=== PATIENT | female | born 1955 | race Caucasian/White ===

== ENCOUNTER 2019-09-01 11:35 | Emergency (ER) | payer MEDICAID, SELFPAY ==
[2019-09-01 11:41] VITALS: BP 150/76; PULSE 86; RESP 24; TEMP 36.6; O2SAT 98; BMI 29.2
--- NOTE | 2019-09-01 11:46 | CT_ITS ---
WS: [id number] CT HEAD NONCONTRAST HISTORY: stroke like symptoms TECHNIQUE: Contiguous axial imaging performed through the brain in 2.5 mm imaging. Bone and soft tiss ue windows. Sagittal and coronal reformats reviewed. All CT scans at [facility] use at ast one of these dose optimization techniques: automated exposure control; mA and/or kV adjustment pe r patient size (includes targeted exams where dose is matched to clinical indication); or iterative r econstruction. DLP: 815.94 mGy.cm COMPARISON: 08/12/2018 No acute intracranial hemorrhage, edema or midline shift. Normal rankin-white matter differentiation. No atrophy or prior infarcts or herniation. Minimal chronic microvascular ischemic disease. Ventricles: Normal size with no hydrocephalus. Paranasal sinuses: As visualized are clear. Mastoid air cells: Well pneumatized. Calvarium and scalp: Skull is intact with no soft tissue edema or swelling. CT/CT head wo con* [id number] IMPRESSION: Unremarkable noncontrast head CT. Stable since 08/12/2018 with no acute changes.
--- NOTE | 2019-09-01 12:51 | XRR_ITS ---
PROCEDURE INFORMATION: Exam: XR Chest, 1 View Exam date and time: 09/01/2019 2:33 PM Age: 64 years old Clinical indication: Condition or disease; Lung condition and disease; Copd and emphysema; Additional info: CVA, copd, emphysema, SOB TECHNIQUE: Imaging protocol: XR of the chest Views: 1 view. COMPARISON: CR Chest 1 [place] [id number] 11/26/2018 6:49 PM FINDINGS: Lungs: Unremarkable. No consolidation. Pleural space: Unremarkable. No pleural effusion. No pneumothorax. Heart/Mediastinum: Unremarkable. No cardiomegaly. Bones/joints: Surgical hardware is seen in the cervical spine stable since prior XR/XR chest 1V portable [id number] IMPRESSION: 1. No acute findings. 2. Surgical hardware cervical spine stable since prior
--- NOTE | 2019-09-01 12:52 | ECG_ITS ---
Measurements Intervals [place] Rate: 67 P: 57 FL: 165 QRS: 66 QRSD: 82 T: 63 QT: 396 QTc: 420 SINUS RHYTHM Compared to ECG 11/26/2018 18:55:12 Myocardial infarct finding no longer present Electronically Signed On 09-01-2019 15:35:33 ACQUISITION EDITOR by Shwetha Lo M.D. [id number]
[2019-09-01 14:59] LABS: Basophils # 0.1 10^3/uL (0.0-0.1); Basophils % 0.8 %; Eosinophils # 0.4 10^3/uL (0.0-0.8); Eosinophils % 6.7 %; Hemoglobin 11.3 g/dL (11.5-15.3); Lymphocytes # 2.2 10^3/uL (0.8-4.8); Mean Corpuscular HGB Conc 32.3 g/dL (30.0-36.0); Mean Corpuscular Hemoglobin 28.6 pg (28.0-34.0); Mean Corpuscular Volume 88.6 fL (81-99); Monocytes # 0.5 10^3/uL (0.2-0.9); Monocytes % 8.2 %; Neutrophils # 2.8 10^3/uL (1.8-7.7); Nucleated Red Blood Cells % 0 %; Platelet Count 238 10^3/cmm (130-400); Red Blood Count 3.95 10^6/uL (4.1-5.3); Red Cell Distribution Width 12.8 % (12.1-15.1)
[2019-09-01 15:13] LABS: INR 0.99 (0.8-1.2)
[2019-09-01 15:18] LABS: Alanine Aminotransferase 20 U/L (0-33); Albumin Level 4.4 g/dL (3.5-5.2); Alkaline Phosphatase 80 IU/L (35-105); Anion Gap 16.3 (5-19); Aspartate Amino Transferase 16 U/L (0-32); Blood Urea Nitrogen 7 mg/dL (8-23); Calcium 9.4 mg/dL (8.5-10.5); Carbon Dioxide 27 mmol/L (22-29); Chloride 98 mmol/L (98-107); Creatinine Clr Calc Pharmacy 58.9076; Globulin 2.1 g/dL (1.3-4.6); Glucose 121 mg/dL (74-106); Potassium 4.3 mmol/L (3.5-5.1); Sodium 137 mmol/L (136-145); Total Bilirubin 0.2 mg/dL (0.15-1.2); Total Protein 6.5 g/dL (6.6-8.7)
--- NOTE | 2019-09-01 16:37 | ED_ITS ---
Entered by [id number], acting as scribe for Kristan Nguyễn MD Sep 01, 2019 11:35 HPI - Neuro Symptoms/Deficit General: Chief Complaint: Neuro Symptoms/Deficit Stated Complaint: falling, cant see Time Seen by Provider: 09/01/19 16:40 PFS ED PFSH: Statuses (acute, chronic, etc) shown below reflect problem list status as previously entered and may not be historically accurate Social History Smoking and tobacco status: current every day smoker Course Vital Signs: Vital signs: Vital Signs Temperature 98.1 F 09/01/19 17:06 Pulse Rate 76 09/01/19 17:59 Respiratory Rate 14 09/01/19 17:06 Blood Pressure 161/66 09/01/19 17:59 Pulse Oximetry 97 09/01/19 17:59 MDM - Neuro Symptoms/Deficit Lab Data: Labs: Lab Results 09/01/19 09/01/19 09/01/19 Range/Units 14:50 14:50 14:50 WBC 6.0 (4.0-10.0) 10^3/ uL RBC 3.95 L (4.1-5.3) 10^6/u L Hgb 11.3 L (11.5-15.3) g/dL Hct 35.0 L (37.0-47.0) % MCV 88.6 (81-99) fL MCH 28.6 (28.0-34.0) pg MCHC 32.3 (30.0-36.0) g/dL RDW 12.8 (12.1-15.1) % Plt Count 238 (130-400) 10^3/c mm MPV 11.0 H (7.4-10.4) fL Neut % (Auto) 47.0 % Lymph % (Auto) 37.0 % [place] % (Auto) 8.2 % Eos % (Auto) 6.7 % Baso % (Auto) 0.8 % Neut # (Auto) 2.8 (1.8-7.7) 10^3/u L Lymph # (Auto) 2.2 (0.8-4.8) 10^3/u L [place] # (Auto) 0.5 (0.2-0.9) 10^3/u L Eos # (Auto) 0.4 (0.0-0.8) 10^3/u L Baso # (Auto) 0.1 (0.0-0.1) 10^3/u L Nucleated RBC % (a uto) 0 % Nucleated RBCs # 0.0 /100WBC PT 13.40 H (10.5-13.3) SECO NDS INR 0.99 (0.8-1.2) Sodium 137 (136-145) mmol/L Potassium 4.3 (3.5-5.1) mmol/L Chloride 98 (98-107) mmol/L Carbon Dioxide 27 (22-29) mmol/L Anion Gap 16.3 (5-19) BUN 7 L (8-23) mg/dL Creatinine 0.9 (0.5-0.9) mg/dL GFR Calculation 63.0 L (90-130) mL/min Glucose 121 H (74-106) mg/dL Calcium 9.4 (8.5-10.5) mg/dL Total Bilirubin 0.2 (0.15-1.2) mg/dL AST 16 (0-32) U/L ALT 20 (0-33) U/L Alkaline Phosphata se 80 (35-105) IU/L Total Protein 6.5 L (6.6-8.7) g/dL Albumin 4.4 (3.5-5.2) g/dL Globulin 2.1 (1.3-4.6) g/dL Urine Color (Yellow) Urine Appearance (CLEAR) Urine pH (5-7) Ur Specific Gravit y (1.005-1.030) Urine Protein (Negative) Urine Glucose (UA) (Normal) Urine Ketones (Negative) Urine Occult Blood (Negative) Urine Nitrate (Negative) Urine Bilirubin (NEGATIVE) Urine Urobilinogen (Negative) mg/dL Ur Leukocyte Keeley ase (Negative) 09/01/19 Range/Units 17:56 WBC (4.0-10.0) 10^3/ uL RBC (4.1-5.3) 10^6/u L Hgb (11.5-15.3) g/dL Hct (37.0-47.0) % MCV (81-99) fL MCH (28.0-34.0) pg MCHC (30.0-36.0) g/dL RDW (12.1-15.1) % Plt Count (130-400) 10^3/c mm MPV (7.4-10.4) fL Neut % (Auto) % Lymph % (Auto) % [place] % (Auto) % Eos % (Auto) % Baso % (Auto) % Neut # (Auto) (1.8-7.7) 10^3/u L Lymph # (Auto) (0.8-4.8) 10^3/u L [place] # (Auto) (0.2-0.9) 10^3/u L Eos # (Auto) (0.0-0.8) 10^3/u L Baso # (Auto) (0.0-0.1) 10^3/u L Nucleated RBC % (a uto) % Nucleated RBCs # /100WBC PT (10.5-13.3) SECO NDS INR (0.8-1.2) Sodium (136-145) mmol/L Potassium (3.5-5.1) mmol/L Chloride (98-107) mmol/L Carbon Dioxide (22-29) mmol/L Anion Gap (5-19) BUN (8-23) mg/dL Creatinine (0.5-0.9) mg/dL GFR Calculation (90-130) mL/min Glucose (74-106) mg/dL Calcium (8.5-10.5) mg/dL Total Bilirubin (0.15-1.2) mg/dL AST (0-32) U/L ALT (0-33) U/L Alkaline Phosphata se (35-105) IU/L Total Protein (6.6-8.7) g/dL Albumin (3.5-5.2) g/dL Globulin (1.3-4.6) g/dL Urine Color Straw (Yellow) Urine Appearance Clear (CLEAR) Urine pH 7 (5-7) Ur Specific Gravit y 1.010 (1.005-1.030) Urine Protein Neg (Negative) Urine Glucose (UA) Norm (Normal) Urine Ketones Negative (Negative) Urine Occult Blood Neg (Negative) Urine Nitrate Negative (Negative) Urine Bilirubin Neg (NEGATIVE) Urine Urobilinogen Norm (Negative) mg/dL Ur Leukocyte Keeley ase Negative (Negative) Discharge Plan Discharge Patient Disposition: Home, Self-Care Condition: Stable Prescriptions: No Action baclofen 10 mg tablet 10 mg PO BID RF: 0 lamotrigine [Lamictal] 100 mg tablet 100 mg PO DAILY Qty: 30 RF: 0 zolpidem [Ambien] 10 mg tablet 10 mg PO .QHS Qty: 30 RF: 0 Referrals: Merle Adams MD [Primary Care Provider] - Coding Level of Care Code ED Customer Project Manager for Chg Fwd The documentation recorded by the scribmaryanne, [id number], accurately reflects the service I personally performed and the decisions made by Gopi naik Korby, MD Sep 01, 2019 11:35
--- NOTE | 2019-09-01 16:42 | ED_ITS ---
Entered by Anamaria Rao, acting as scribe for Kristan Nguyễn MD Sep 01, 2019 11:35 HPI - Neuro Symptoms/Deficit General: Chief Complaint: Neuro Symptoms/Deficit Stated Complaint: falling, cant see Time Seen by Provider: 09/01/19 16:40 PFSH ED PFSH: Statuses (acute, chronic, etc) shown below reflect problem list status as previously entered and may not be historically accurate Social History Smoking and tobacco status: current every day smoker Course Vital Signs: Vital signs: Vital Signs Temperature 97.9 F 09/01/19 11:41 Pulse Rate 86 09/01/19 11:41 Respiratory Rate 24 H 09/01/19 11:41 Blood Pressure 150/76 09/01/19 11:41 Pulse Oximetry 98 09/01/19 11:41 MDM - Neuro Symptoms/Deficit Lab Data: Labs: Lab Results 09/01/19 09/01/19 09/01/19 Range/Units 14:50 14:50 14:50 WBC 6.0 (4.0-10.0) 10^3/ uL RBC 3.95 L (4.1-5.3) 10^6/u L Hgb 11.3 L (11.5-15.3) g/dL Hct 35.0 L (37.0-47.0) % MCV 88.6 (81-99) fL MCH 28.6 (28.0-34.0) pg MCHC 32.3 (30.0-36.0) g/dL RDW 12.8 (12.1-15.1) % Plt Count 238 (130-400) 10^3/c mm MPV 11.0 H (7.4-10.4) fL Neut % (Auto) 47.0 % Lymph % (Auto) 37.0 % [place] % (Auto) 8.2 % Eos % (Auto) 6.7 % Baso % (Auto) 0.8 % Neut # (Auto) 2.8 (1.8-7.7) 10^3/u L Lymph # (Auto) 2.2 (0.8-4.8) 10^3/u L [place] # (Auto) 0.5 (0.2-0.9) 10^3/u L Eos # (Auto) 0.4 (0.0-0.8) 10^3/u L Baso # (Auto) 0.1 (0.0-0.1) 10^3/u L Nucleated RBC % (a uto) 0 % Nucleated RBCs # 0.0 /100WBC PT 13.40 H (10.5-13.3) SECO NDS INR 0.99 (0.8-1.2) Sodium 137 (136-145) mmol/L Potassium 4.3 (3.5-5.1) mmol/L Chloride 98 (98-107) mmol/L Carbon Dioxide 27 (22-29) mmol/L Anion Gap 16.3 (5-19) BUN 7 L (8-23) mg/dL Creatinine 0.9 (0.5-0.9) mg/dL GFR Calculation 63.0 L (90-130) mL/min Glucose 121 H (74-106) mg/dL Calcium 9.4 (8.5-10.5) mg/dL Total Bilirubin 0.2 (0.15-1.2) mg/dL AST 16 (0-32) U/L ALT 20 (0-33) U/L Alkaline Phosphata se 80 (35-105) IU/L Total Protein 6.5 L (6.6-8.7) g/dL Albumin 4.4 (3.5-5.2) g/dL Globulin 2.1 (1.3-4.6) g/dL Discharge Plan Discharge Prescriptions: No Action baclofen 10 mg tablet 10 mg PO BID RF: 0 lamotrigine [Lamictal] 100 mg tablet 100 mg PO DAILY Qty: 30 RF: 0 zolpidem [Ambien] 10 mg tablet 10 mg PO .QHS Qty: 30 RF: 0 Coding Level of Care Code ED Fiber Worker for Yamileth Oliveira
--- NOTE | 2019-09-01 16:52 | ED_ITS ---
Entered by Anamaria Rao, acting as scribe for Kristan Nguyễn MD Sep 01, 2019 11:35 HPI - Neuro Symptoms/Deficit General: Chief Complaint: Neuro Symptoms/Deficit Stated Complaint: falling, cant see Time Seen by Provider: 09/01/19 16:40 Source: patient and family Mode of arrival: ambulatory Limitations: no limitations History of Present Illness: HPI Narrative: 64 yo female presents to ED with complaints of falling and inability to see correctly. The patient states she is falling for no reason and seems like one eye will close then the other. She said she has been off balance. She said years ago she had fallen so much she was paralyzed. Family states she has been passing out and doesn't know how she ended up on the floor. The patient takes Tramadol and she had pain patches in place, but has removed them due to them causing her to itch. The patient states that she had a CT in [place] a few weeks ago and she was told to come to the ED today. Onset (ago): day(s) Timing confirmed by: family member Location: other (weak bilateral legs, difficulty with vision) History of same: Yes Severity: mild Quality: weak and other (difficulty with vision) Relieving factors: none Exacerbating factors: none Context: sudden onset and recent fall Associated symptoms: Reports weakness; Deny chest pain, headache(s), nausea or vomiting Treatments Prior to Arrival: none Review of Systems Const: Denies: fever or chills ENMT: Denies: throat pain or mouth pain Card: Denies: chest pain Resp: Denies: shortness of breath GI: Denies: abdominal pain, nausea, vomiting or diarrhea : Denies: difficulty urinating Musc: Denies: back pain or joint pain Skin/Breast: Denies: rash Neuro: Denies: headache or behavioral changes Psych: Denies: depression Endo: Denies: excessive urination Joel/Lymph: Denies: easy bruising All/Imm: Denies: hives PFSH ED PFSH: Statuses (acute, chronic, etc) shown below reflect problem list status as previously entered and may not be historically accurate Social History Smoking and tobacco status: current every day smoker Physical Exam Const: COMMON NORMALS: no apparent distress and healthy appearing HENMT: COMMON NORMALS: normocephalic and external nose normal HEAD & SCALP: normocephalic NOSE: external nose normal and no nasal discharge (nasal dischage) Eye: COMMON NORMALS: PERRL PUPIL: Yes PERRL Neck/C-Spine: COMMON NORMALS: full ROM and no lymphadenopathy Chest: COMMONS NORMALS: inspection of chest normal Resp: COMMON NORMALS: normal respiratory effort and clear to auscultation bilaterally AUSCULTATION: clear to auscultation bilaterally Cardio: COMMON NORMALS: regular rate and regular rhythm RATE: regular rate RHYTHM: regular rhythm GI: COMMON NORMALS: soft to palpation PALPATION: Yes soft Extremity: COMMON NORMALS: normal to inspection, full ROM and normal capillary refill Psych: COMMON NORMALS: mental status grossly normal and cooperative Skin: COMMON NORMALS: no rashes or lesions noted GENERAL SKIN EXAM: no rashes or lesions noted Course Vital Signs: Vital signs: Vital Signs Temperature 98.1 F 09/01/19 17:06 Pulse Rate 80 09/01/19 19:22 Respiratory Rate 14 09/01/19 17:06 Blood Pressure 161/66 09/01/19 17:59 Pulse Oximetry 95 09/01/19 19:22 MDM - Neuro Symptoms/Deficit MDM Narrative: Medical decision making narrative: Patient presents here with dizziness and frequent falls. She states she is been falling for over a year. She is well-appearing here and able to ambulate without any difficulty. Patient CT head and labs are all normal. I offered her admission but she states she would like to go home and follow-up with her primary care doctor. She refuses to be admitted here. Patient is to return if worsening or changes her mind. Lab Data: Labs: Lab Results 09/01/19 09/01/19 09/01/19 Range/Units 14:50 14:50 14:50 WBC 6.0 (4.0-10.0) 10^3/ uL RBC 3.95 L (4.1-5.3) 10^6/u L Hgb 11.3 L (11.5-15.3) g/dL Hct 35.0 L (37.0-47.0) % MCV 88.6 (81-99) fL MCH 28.6 (28.0-34.0) pg MCHC 32.3 (30.0-36.0) g/dL RDW 12.8 (12.1-15.1) % Plt Count 238 (130-400) 10^3/c mm MPV 11.0 H (7.4-10.4) fL Neut % (Auto) 47.0 % Lymph % (Auto) 37.0 % [place] % (Auto) 8.2 % Eos % (Auto) 6.7 % Baso % (Auto) 0.8 % Neut # (Auto) 2.8 (1.8-7.7) 10^3/u L Lymph # (Auto) 2.2 (0.8-4.8) 10^3/u L [place] # (Auto) 0.5 (0.2-0.9) 10^3/u L Eos # (Auto) 0.4 (0.0-0.8) 10^3/u L Baso # (Auto) 0.1 (0.0-0.1) 10^3/u L Nucleated RBC % (a uto) 0 % Nucleated RBCs # 0.0 /100WBC PT 13.40 H (10.5-13.3) SECO NDS INR 0.99 (0.8-1.2) Sodium 137 (136-145) mmol/L Potassium 4.3 (3.5-5.1) mmol/L Chloride 98 (98-107) mmol/L Carbon Dioxide 27 (22-29) mmol/L Anion Gap 16.3 (5-19) BUN 7 L (8-23) mg/dL Creatinine 0.9 (0.5-0.9) mg/dL GFR Calculation 63.0 L (90-130) mL/min Glucose 121 H (74-106) mg/dL Calcium 9.4 (8.5-10.5) mg/dL Total Bilirubin 0.2 (0.15-1.2) mg/dL AST 16 (0-32) U/L ALT 20 (0-33) U/L Alkaline Phosphata se 80 (35-105) IU/L Total Protein 6.5 L (6.6-8.7) g/dL Albumin 4.4 (3.5-5.2) g/dL Globulin 2.1 (1.3-4.6) g/dL Urine Color (Yellow) Urine Appearance (CLEAR) Urine pH (5-7) Ur Specific Gravit y (1.005-1.030) Urine Protein (Negative) Urine Glucose (UA) (Normal) Urine Ketones (Negative) Urine Occult Blood (Negative) Urine Nitrate (Negative) Urine Bilirubin (NEGATIVE) Urine Urobilinogen (Negative) mg/dL Ur Leukocyte Keeley ase (Negative) 09/01/19 Range/Units 17:56 WBC (4.0-10.0) 10^3/ uL RBC (4.1-5.3) 10^6/u L Hgb (11.5-15.3) g/dL Hct (37.0-47.0) % MCV (81-99) fL MCH (28.0-34.0) pg MCHC (30.0-36.0) g/dL RDW (12.1-15.1) % Plt Count (130-400) 10^3/c mm MPV (7.4-10.4) fL Neut % (Auto) % Lymph % (Auto) % [place] % (Auto) % Eos % (Auto) % Baso % (Auto) % Neut # (Auto) (1.8-7.7) 10^3/u L Lymph # (Auto) (0.8-4.8) 10^3/u L [place] # (Auto) (0.2-0.9) 10^3/u L Eos # (Auto) (0.0-0.8) 10^3/u L Baso # (Auto) (0.0-0.1) 10^3/u L Nucleated RBC % (a uto) % Nucleated RBCs # /100WBC PT (10.5-13.3) SECO NDS INR (0.8-1.2) Sodium (136-145) mmol/L Potassium (3.5-5.1) mmol/L Chloride (98-107) mmol/L Carbon Dioxide (22-29) mmol/L Anion Gap (5-19) BUN (8-23) mg/dL Creatinine (0.5-0.9) mg/dL GFR Calculation (90-130) mL/min Glucose (74-106) mg/dL Calcium (8.5-10.5) mg/dL Total Bilirubin (0.15-1.2) mg/dL AST (0-32) U/L ALT (0-33) U/L Alkaline Phosphata se (35-105) IU/L Total Protein (6.6-8.7) g/dL Albumin (3.5-5.2) g/dL Globulin (1.3-4.6) g/dL Urine Color Straw (Yellow) Urine Appearance Clear (CLEAR) Urine pH 7 (5-7) Ur Specific Gravit y 1.010 (1.005-1.030) Urine Protein Neg (Negative) Urine Glucose (UA) Norm (Normal) Urine Ketones Negative (Negative) Urine Occult Blood Neg (Negative) Urine Nitrate Negative (Negative) Urine Bilirubin Neg (NEGATIVE) Urine Urobilinogen Norm (Negative) mg/dL Ur Leukocyte Keeley ase Negative (Negative) Imaging Data^: CXR: Radiologist's impression: [address] [address] XRay Report Signed Patient: Ernestine Nunez Unit #: [id number] : 1955 Age/Sex: 64 / F ADM Date: 09/01/19 Loc: ER Room/Bed: Attending Dr: Ordering Provider/Ordering MD: Kristan Nguyễn MD Date of Service: 09/01/19 Procedure(s): XR chest 1V portable [id number] Accession Number(s): [id number] Report Number: [id number] PROCEDURE INFORMATION: Exam: XR Chest, 1 View Exam date and time: 09/01/2019 2:33 PM Age: 64 years old Clinical indication: Condition or disease; Lung condition and disease; Copd and emphysema; Additional info: CVA, copd, emphysema, SOB TECHNIQUE: Imaging protocol: XR of the chest Views: 1 view. COMPARISON: CR Chest 1 [place] [id number] 11/26/2018 6:49 PM FINDINGS: Lungs: Unremarkable. No consolidation. Pleural space: Unremarkable. No pleural effusion. No pneumothorax. Heart/Mediastinum: Unremarkable. No cardiomegaly. Bones/joints: Surgical hardware is seen in the cervical spine stable since prior XR/XR chest 1V portable [id number] IMPRESSION: 1. No acute findings. 2. Surgical hardware cervical spine stable since prior Dictated By: Hector Quinonez Signed By: Hector Quinonez Signed Date/Time: 09/01/19 1507 DD/ CT Head: Radiologist's impression: [facility] [address] [place] [address] CT Scan Report Signed Patient: Ernestine Nunez Unit #: [id number] : 1955 Age/Sex: 64 / F ADM Date: 09/01/19 Loc: ER Room/Bed: Attending Dr: Ordering Provider/Ordering MD: Raul Storey DO Date of Service: 09/01/19 Procedure(s): CT head wo con* [id number] Accession Number(s): [id number] Report Number: [id number] WS: [id number] CT HEAD NONCONTRAST HISTORY: stroke like symptoms TECHNIQUE: Contiguous axial imaging performed through the brain in 2.5 mm imaging. Bone and soft tissue windows. Sagittal and coronal reformats reviewed. All CT scans at [facility] use at least one of these dose optimization techniques: automated exposure control; mA and/or kV adjustment per patient size (includes targeted exams where dose is matched to clinical indication); or iterative reconstruction. DLP: 815.94 mGy.cm COMPARISON: 08/12/2018 No acute intracranial hemorrhage, edema or midline shift. Normal rankin-white matter differentiation. No atrophy or prior infarcts or herniation. Minimal chronic microvascular ischemic disease. Ventricles: Normal size with no hydrocephalus. Paranasal sinuses: As visualized are clear. Mastoid air cells: Well pneumatized. Calvarium and scalp: Skull is intact with no soft tissue edema or swelling. CT/CT head wo con* [id number] IMPRESSION: Unremarkable noncontrast head CT. Stable since 08/12/2018 with no acute changes. Dictated By: Milagros Ma DO Signed By: Milagros Ma DO Signed Date/Time: 09/01/19 1501 DD/ Discharge Plan Discharge Patient Disposition: Home, Self-Care Clinical Impression: Falls, Dizziness Condition: Stable Prescriptions: No Action baclofen 10 mg tablet 10 mg PO BID RF: 0 lamotrigine [Lamictal] 100 mg tablet 100 mg PO DAILY Qty: 30 RF: 0 zolpidem [Ambien] 10 mg tablet 10 mg PO .QHS Qty: 30 RF: 0 Discharge Orders: Discharge Order (Routine); Ordered 09/01/19 Ordered By: Kristan Nguyễn Referrals: Merle Adams MD [Primary Care Provider] - Discharge Diet: Advance as tolerated Discharge Activity: Resume usual activity Patient Instructions: Dizziness (ED) Discharge Date/Time: 09/01/19 19:22 Coding Level of Care Code ED Quartz Cutter for Chg Fwd The documentation recorded by the Maira umaña Valerie R, accurately reflects the service I personally performed and the decisions made by Gopi naik Korby, MD Sep 01, 2019 11:35
[2019-09-01 17:06] VITALS: BP 93/72; PULSE 73; RESP 14; TEMP 36.7; O2SAT 97
[2019-09-01 17:59] VITALS: BP 161/66; PULSE 76; O2SAT 97
[2019-09-01 18:27] LABS: Add Urine Microscopic? NO
[2019-09-01 18:36] LABS: Bilirubin Urine Neg (NEGATIVE); Blood Urine Neg (Negative); Glucose Urine UA Norm (Normal); Ketones Urine Negative (Negative); Leukocyte Esterase Urine Negative (Negative); Nitrate Urine Negative (Negative); Protein Urine Neg (Negative); Urine Appearance Clear (CLEAR); Urine Color Straw (Yellow); Urobilinogen Urine Norm (Negative); pH Urine 7 (5-7)
[2019-09-01 19:22] VITALS: PULSE 80; O2SAT 95
== END 2019-09-01 19:22 | disposition home or self-care (01) ==
PROVIDERS: Family Medicine; Emergency Provider Emergency Medicine; Family Provider Family Medicine; PCP Family Medicine
DX: R29.6 Repeated falls (principal); R42 Dizziness and giddiness; F17.210 Nicotine dependence, cigarettes, uncomplicated
CPT/HCPCS: 70450; 71045; 80053; 81003; 85025; 85610; 93005; 99282; A9270

== ENCOUNTER 2019-09-12 09:34 | Outpatient (CLI) | payer MEDICAID, SELFPAY ==
--- NOTE | 2019-09-12 10:53 | MR_ITS ---
WS: [id number] MRI BRAIN WITH AND WITHOUT CONTRAST HISTORY: VISION CHANGES, FREQUENT FALLS, HYPERTENSION COMPARISON: CT head 09/01/2019 TECHNIQUE: Multiplanar imaging performed through the brain with Prohance 16 ml's IV. No acute infarcts are seen. Jones-white matter differentiation is well preserved. Minimal chronic micr ovascular ischemic disease. Mild microvascular disease in the zhanna. No prior hemorrhage. No susceptibility artifacts or prior lacunar infarcts. Ventricles and extra-axial spaces are normal. Clivus and pituitary gland are normal. Optic nerves are tortuous although there is no increased CSF s urrounding them. Visualized posterior fossa and brainstem are also normal. Postcontrast images are negative for masses or vascular malformations. Dural venous sinuses are normal. Paranasal sinuses: Small amount of thickening in the RIGHT maxillary sinus. Mastoid air cells: Normal. Calvarium and scalp: Normal. MR/MR head wo/w con [id number] IMPRESSION: 1. Minimal chronic microvascular ischemic disease in the zhanna and supratentori al white matter. 2. No mass or abnormal enhancement or acute infarct. 3. Mild tortuosity of the optic nerves can be seen with intracranial hypertens ion.
== END 2019-09-12 09:35 | disposition home or self-care (01) ==
LOC: RADWPI 09:37
PROVIDERS: Family Provider Family Medicine; PCP Family Medicine; Visit Provider Nurse Practitioner Family
DX: I67.82 Cerebral ischemia (principal); I10 Essential (primary) hypertension; R29.6 Repeated falls; H53.9 Unspecified visual disturbance
CPT/HCPCS: 70553; A9579

== ENCOUNTER 2019-09-27 09:19 | Outpatient (CLI) | payer MEDICAID, SELFPAY ==
[2019-10-02 18:10] LABS: Hepatitis C Genotype RNA NOT DETECTED
== END 2019-09-27 09:20 | disposition home or self-care (01) ==
LOC: LAB 09:22
PROVIDERS: Family Provider Family Medicine; PCP Family Medicine; Visit Provider Nurse Practitioner Family
DX: R76.8 Other specified abnormal immunological findings in serum (principal)
CPT/HCPCS: 87522; 87902

== ENCOUNTER → 2019-09-29 12:38 | Outpatient (BNVA) | payer MEDICAID, SELFPAY | PROVIDERS: Family Provider Family Medicine; PCP Family Medicine; Visit Provider Nurse Practitioner | DX: F31.73 Bipolar disorder, in partial remission, most recent episode manic (principal) | CPT/HCPCS: 99213 ==

== ENCOUNTER → 2019-10-06 11:03 | Outpatient (BNVA) | payer MEDICAID, SELFPAY | PROVIDERS: Family Provider Family Medicine; PCP Family Medicine; Visit Provider Otolaryngology | DX: H92.03 Otalgia, bilateral (principal); H60.63 Unspecified chronic otitis externa, bilateral; R26.89 Other abnormalities of gait and mobility; F17.210 Nicotine dependence, cigarettes, uncomplicated | CPT/HCPCS: 99204; 99214 ==

== ENCOUNTER 2019-10-09 12:44 | Outpatient (CLI) | payer MEDICAID, SELFPAY ==
--- NOTE | 2019-10-09 12:50 | MR_ITS ---
WS: [id number] MRI CERVICAL SPINE HISTORY: cervical pain COMPARISON: Cervical spine CT 06/21/2019. Study of the cervical spine is limited by the hardware which extends from C3 through C6. Corpectomy a t C5-6. There is also motion artifact. There is increased signal and smudginess in the cervical cord at the C6 level and possibly at the C5 level. Changes at C5 may be artifact. Craniocervical junction, C1 and C2 relationship, odontoid process and soft tissues are normal. C2-C3: Shallow central disc protrusion without stenosis. C3-C4: Mild osteophytic ridging with mild central and foraminal narrowing. Larger osteophytes in the LEFT foramen. C4-C5: Mild osteophytic ridging. Artifact is causing significant limitation of the central canal and foramen. There is at least mild central and bilateral foraminal stenosis. C5-C6: Limited by significant artifact. Cannot exclude stenosis or herniations. There is an area of l ow signal intensity posterior to the C6 vertebral body which on the recent prior CT is noted to be os teophyte. This calcification causes effacement of CSF and probably at least moderate central stenosis . This is also the location of the increased signal in the cervical cord. C6-C7: Osteophytic ridging and diffuse disc bulging. There is at least moderate if not severe central and bilateral foraminal stenosis. Severe LEFT foraminal stenosis. More moderate on the RIGHT. C7-T1: Normal. Paraspinal soft tissue are normal. MR/MR cervical spine wo/w [id number] IMPRESSION: 1. Status post extensive anterior fusion from C3 through C6. Corpectomy change s at C5 and C6. 2. Examination is significantly limited by artifact and motion. 3. Suspect significant stenosis at the C6-7 level due to combination of an ost eophyte, disc and facet arthropathy. There is a large osteophyte posterior to C 6 with significant encroachment upon the cervical cord and myelomalacia. Also n oted on the prior CT of 03/01/2019. 4. Severe LEFT foraminal stenosis at C6-7 and slightly more moderate involving the RIGHT foramen. 5. Mild central and bilateral foraminal stenosis at C3-4 and C4-5.
--- NOTE | 2019-10-09 12:50 | MR_ITS ---
WS: [id number] MRI LUMBAR SPINE NONCONTRAST HISTORY: lumbar pain COMPARISON: CT 04/13/2018 TECHNIQUE: Sagittal and axial multisequence imaging is submitted. Remote L1 fracture by 20%. 2 mm retropulsion of the posterior superior endplate is unchanged over mul tiple prior years. No significant compression of the conus although there is slight deformity. Disc spaces and vertebral body heights are well-preserved. Conus terminates normally at L1-2 disc level. The thecal sac throughout the lumbar spine is narrowed. L1-L2: No stenosis. L2-L3: Mild annular disc bulging and mild ligamentum flavum hypertrophy. No stenosis. L3-L4: Mild ligamentum flavum hypertrophy and facet arthropathy. No stenosis. L4-L5: Mild annular disc bulging with moderate ligamentum flavum and facet arthropathy. Narrowing of the thecal sac with fluid in the facet joints and osteophytes. Mild central and bilateral foraminal s tenosis. L5-S1: Mild osteophytic ridging and diffuse disc bulging. Moderate ligamentum flavum hypertrophy and facet arthropathy. Mild bilateral foraminal stenosis, slightly greater on the RIGHT. Visualized retroperitoneum is negative. MR/MR lumbar spine wo con* [id number] IMPRESSION: 1. Stable burst fracture of L1 over multiple prior years with less than 2 mm r etropulsion of the posterior superior endplate. 2. Mild diffuse narrowing of the thecal sac. Probably due to shortened pedicle s. 3. Mild spondylosis at L4-5 and L5-S1 resulting in mild bilateral foraminal st enosis. Mild central stenosis also at the L4-5 level.
--- NOTE | 2019-10-09 12:50 | MR_ITS ---
WS: [id number] MRI THORACIC SPINE noncontrast HISTORY: cervical pain COMPARISON: 04/16/2017 TECHNIQUE: Multiplanar sequences are performed in sagittal and axial planes. Posterior thoracic alignment is normal. Postsurgical changes are noted in the cervical spine. There i s mild disc desiccation throughout the thoracic spine. Mild anterior wedging superior endplate of T5 with no edema. Remote L1 compression fracture by 20%. Signal within the cord is normal. T1-2: Normal. T2-3: Normal. T3-4: Normal. T4-5: Small vertebral body osteophytes without stenosis. T5-6: Normal. T6-7: Normal. T7-8: Normal. T8-9: Mild facet arthropathy no stenosis. T9-10: Mild facet arthropathy no stenosis. T10-11: Mild facet arthropathy with mild bilateral foraminal narrowing, LEFT greater than RIGHT. T11-12: Moderate facet joint arthropathy with mild bilateral foraminal narrowing. Paraspinal soft tissues are normal. MR/MR thoracic spin wo con* [id number] IMPRESSION: 1. Mild to moderate facet arthropathy from T8-9 through T11-12. No severe sten osis. Mild bilateral foraminal stenosis at T10-11 and T11-12. 2. No central stenosis. 3. Remote minimal compression deformity T5.
--- NOTE | 2019-10-09 15:15 | XR_ITS ---
WS: [id number] LATERAL LUMBAR SPINE: 3 view. Lateral radiographs are performed in upright neutral, flexion and extension to the patient's toleranc e. HISTORY: lumbar pain COMPARISON: 10/21/2017 Normal lumbar alignment. Stable L1 compression fracture by 30%. With flexion and extension there is n o instability. XR/XR lumbar spine f/e only [id number] IMPRESSION: 1. No lumbar spine instability. 2. Stable L1 compression fracture without retropulsion.
--- NOTE | 2019-10-09 15:45 | XR_ITS ---
WS: [id number] LATERAL CERVICAL SPINE: 3 view. Lateral radiographs are performed in upright neutral, flexion and extension to the patient's toleranc e. HISTORY: cervical pain COMPARISON: 01/20/2019 Extensive anterior cervical fusion from C3 through C6. Corpectomy at C5 and partial C6 vertebral bodi es. No hardware fracture. No change in position of the hardware. No lucency around the screws. Severe degenerative disc space narrowing at C6-7. With flexion and extension there is very little movement of the vertebral bodies but no instability i s identified. XR/XR cervical spine fl/ex [id number] IMPRESSION: 1. No cervical spine instability. 2. Extensive anterior cervical fusion from C3 through C6 with C5-6 corpectomy cage, stable.
== END 2019-10-09 12:45 | disposition home or self-care (01) ==
LOC: RADWPI 12:48
PROVIDERS: Family Provider Family Medicine; PCP Family Medicine; Visit Provider Specialist
DX: M50.020 Cervical disc disorder with myelopathy, mid-cervical region, unspecified level (principal); M48.56XA Collapsed vertebra, not elsewhere classified, lumbar region, initial encounter for fracture; M48.04 Spinal stenosis, thoracic region; M96.0 Pseudarthrosis after fusion or arthrodesis; M54.2 Cervicalgia; M54.5 Low back pain; M47.896 Other spondylosis, lumbar region; M47.897 Other spondylosis, lumbosacral region; Z98.1 Arthrodesis status; M48.02 Spinal stenosis, cervical region
CPT/HCPCS: 72040; 72120; 72146; 72148; 72156; A9579

== ENCOUNTER 2019-11-04 18:49 | Emergency (ER) | payer MEDICAID, SELFPAY ==
[2019-11-04 19:08] VITALS: BP 131/111; PULSE 84; RESP 18; TEMP 36.7; O2SAT 98; BMI 31.1
--- NOTE | 2019-11-04 19:37 | XRR_ITS ---
PROCEDURE INFORMATION: Exam: XR Chest, 1 View Exam date and time: 11/04/2019 8:08 PM Age: 64 years old Clinical indication: Cough and dyspnea; Prior surgery; Surgery date: 6+ months; Surgery type: C spine, gb; Additional info: SOB TECHNIQUE: Imaging protocol: XR of the chest Views: 1 view. COMPARISON: CR XR chest 1V portable [id number] 09/01/2019 2:28 PM FINDINGS: No focal pulmonary consolidation is demonstrated on this single frontal image. No significant obscuration of the lateral costophrenic angles is demonstrated. No significant vascular congestion is demonstrated. Visualized cardiac silhouette size appears within normal limits. Metallic hardware projects over visualized cervical spine. Metallic anchors project over left humeral head. XR/XR chest 1V portable [id number] IMPRESSION: No acute pulmonary process is demonstrated.
[2019-11-04 19:58] LABS: Basophils # 0.1 10^3/uL (0.0-0.1); Basophils % 0.6 %; Eosinophils # 0.4 10^3/uL (0.0-0.8); Hematocrit 37.5 % (37.0-47.0); Hemoglobin 11.7 g/dL (11.5-15.3); Lymphocytes # 2.3 10^3/uL (0.8-4.8); Lymphocytes % 27.1 %; Mean Corpuscular HGB Conc 31.2 g/dL (30.0-36.0); Mean Corpuscular Hemoglobin 29.1 pg (28.0-34.0); Mean Corpuscular Volume 93.3 fL (81-99); Mean Platelet Volume 10.5 fL (7.4-10.4); Monocytes # 0.7 10^3/uL (0.2-0.9); Monocytes % 7.6 %; Neutrophils # 5.1 10^3/uL (1.8-7.7); Neutrophils % 59.3 %; Nucleated Red Blood Cells % 0 %; Platelet Count 237 10^3/cmm (130-400); Red Blood Count 4.02 10^6/uL (4.1-5.3); White Blood Count 8.6 10^3/uL (4.0-10.0)
[2019-11-04] MEDS: ipratropium-albuterol 3 mL Neb INHALATION (20:13)
[2019-11-04 20:14] VITALS: PULSE 70; RESP 18; O2SAT 98
[2019-11-04 20:18] VITALS: PULSE 71; RESP 16; O2SAT 98
[2019-11-04 20:24] LABS: Alanine Aminotransferase 14 U/L (0-33); Albumin Level 4.1 g/dL (3.5-5.2); Alkaline Phosphatase 79 IU/L (35-105); Aspartate Amino Transferase 15 U/L (0-32); Blood Urea Nitrogen 10 mg/dL (8-23); Calcium 9.2 mg/dL (8.5-10.5); Carbon Dioxide 24 mmol/L (22-29); Chloride 102 mmol/L (98-107); Globulin 2.8 g/dL (1.3-4.6); Glomerular Filtration Rate 84.2 mL/min (90-130); Glucose 98 mg/dL (65-115); Osmolality Calculated 280 mOsm/kg (285-295); Sodium 137 mmol/L (136-145); Total Bilirubin 0.2 mg/dL (0.15-1.2); Total Protein 6.9 g/dL (6.6-8.7)
[2019-11-04 20:33] LABS: Influenza A by IFA Negative (Negative); Influenza B by IFA Negative (Negative)
--- NOTE | 2019-11-04 21:01 | W.ED.SOB ---
HPI - SOB/Dyspnea General: Chief Complaint: Shortness of Breath/Dyspnea Stated Complaint: SOB/coughing Time Seen by Provider: 11/04/19 19:18 History of Present Illness: MD elicited complaint: shortness of breath and cough Pertinent past history: COPD Onset (ago): day(s) Context: recent illness Timing: constant Severity: moderate Exacerbating factors: exertion Relieving factors: nothing Known history of: COPD Associated symptoms: Reports chest congestion and cough; Deny abdominal pain, chest pain, dizziness, fever(s), nausea or vomiting Treatment prior to arrival: bronchodilator Review of Systems Const: Denies: fever Eyes: Denies: change in vision or blurry vision ENMT: Denies: painful swallowing, post nasal drip or facial/sinus pain Card: Denies: chest pain Resp: Reports: chest congestion GI: Denies: abdominal pain, nausea, vomiting or blood in stool : Denies: painful urination or blood in urine Musc: Reports: neck pain; Denies: back pain, redness or joint warmth Skin/Breast: Denies: rash, itching or redness Neuro: Denies: headache, dizziness or vertigo Psych: Denies: anxiety PFSH ED PFSH: Medical History (Updated 11/04/19 @ 21:11 by Cr Carreno DO) Bipolar disorder, in partial remission, most recent episode manic Cervical disc disorder with myelopathy of mid-cervical region Chronic otitis externa of both ears COPD (chronic obstructive pulmonary disease) Imbalance Otalgia of both ears Pseudarthrosis following spinal fusion Surgical History H/O: hysterectomy History of ankle surgery History of mandibular surgery Hx of carpal tunnel repair left Hx of section Hx of cholecystectomy S/P left rotator cuff repair Status post cervical spinal fusion C5 corpectomy, C3-C6 anterior [place]fixation[place] [place] Smoking and tobacco status: current every day smoker cigarettes Packs smoked per day: 1 Smoking risk assessment/counseling performed?: Yes Tobacco counseling given: counseling >3 minutes Alcohol intake: never Lives independently: Yes Marital status: Single Current occupational status: disabled Physical Exam Const: GENERAL APPEARANCE: well developed ORIENTATION/CONSCIOUSNESS: Yes oriented to person, Yes oriented to place and Yes oriented to time HENMT: COMMON NORMALS: normocephalic, external ears normal and external nose normal HEAD & SCALP: normocephalic FACE & SINUS: normal facial exam NOSE: external nose normal and no nasal discharge EXTERNAL EAR: Yes external ears normal MOUTH: tongue normal Eye: COMMON NORMALS: PERRL, EOMs intact bilaterally and conjunctivae normal EYELID: eyelids normal CONJUNCTIVA: Yes conjunctivae normal PUPIL: Yes PERRL Neck/C-Spine: COMMON NORMALS: full ROM GENERAL: No tracheal deviation Chest: COMMONS NORMALS: inspection of chest normal CHEST: No tenderness Resp: EFFORT & INSPECTION: No tachypneic, No respiratory distress, No retractions, No uses accessory muscles and No tracheal deviation AUSCULTATION: no rhonchi, no wheezes and lung sounds not diminished Cardio: COMMON NORMALS: regular rate and regular rhythm RATE: regular rate RHYTHM: regular rhythm HEART SOUNDS: no murmurs PERIPHERAL PULSES: radial pulses present GI: INSPECTION: No abdominal distension AUSCULTATION: No hyperactive bowel sounds and No hypoactive bowel sounds PALPATION: No guarding and No rigid PERCUSSION: no dullness to percussion and no tympanic to percussion Neuro: SENSORIUM/ORIENTATION: Yes oriented to person, Yes oriented to place and Yes oriented to time Psych: COMMON NORMALS: mental status grossly normal Skin: COMMON NORMALS: no rashes or lesions noted GENERAL SKIN EXAM: no rashes or lesions noted Course Vital Signs: Vital signs: Vital Signs Temperature 98.0 F 11/04/19 19:08 Pulse Rate 84 11/04/19 21:28 Respiratory Rate 18 11/04/19 21:28 Blood Pressure 121/78 11/04/19 21:28 Pulse Oximetry 95 11/04/19 21:28 MDM - SOB/Dyspnea MDM Narrative: Medical decision making narrative: 64-year-old lady with a history of COPD. She presents with cough and shortness of breath, not feeling well. She has been wheezing at home. She has been using bronchodilators without too much improvement. She is not requiring oxygen. She does not usually wear oxygen. Oxygen sats are normal. She has been afebrile, and has no history of a fever. She had traveled to [place] last week, and had eaten out. She had some diarrhea. Hemoglobin is 11.7. White blood cell count is 8.6. Chest x-ray is clear. Her flu swabs are negative. With her chest congestion, wheezing, and cough, and history of travel during the novel coronavirus pandemic, she will be tested, and allowed discharge. She knows to self quarantine, which she has been doing. She received a breathing treatment here, with droplet precautions in place. She will be treated for bronchitis with doxycycline and home nebulizer treatments. Lab Data: Labs: Lab Results 11/04/19 11/04/19 11/04/19 Range/Units 19:52 19:52 19:53 WBC 8.6 (4.0-10.0) 10^3/ uL RBC 4.02 L (4.1-5.3) 10^6/u L Hgb 11.7 (11.5-15.3) g/dL Hct 37.5 (37.0-47.0) % MCV 93.3 (81-99) fL MCH 29.1 (28.0-34.0) pg MCHC 31.2 (30.0-36.0) g/dL RDW 13.0 (12.1-15.1) % Plt Count 237 (130-400) 10^3/c mm MPV 10.5 H (7.4-10.4) fL Neut % (Auto) 59.3 % Lymph % (Auto) 27.1 % [place] % (Auto) 7.6 % Eos % (Auto) 5.0 % Baso % (Auto) 0.6 % Neut # (Auto) 5.1 (1.8-7.7) 10^3/u L Lymph # (Auto) 2.3 (0.8-4.8) 10^3/u L [place] # (Auto) 0.7 (0.2-0.9) 10^3/u L Eos # (Auto) 0.4 (0.0-0.8) 10^3/u L Baso # (Auto) 0.1 (0.0-0.1) 10^3/u L Nucleated RBC % (a uto) 0 % Nucleated RBCs # 0.0 /100WBC Sodium 137 (136-145) mmol/L Potassium 4.0 (3.5-5.1) mmol/L Chloride 102 (98-107) mmol/L Carbon Dioxide 24 (22-29) mmol/L Anion Gap 15.0 (5-19) BUN 10 (8-23) mg/dL Creatinine 0.7 (0.5-0.9) mg/dL GFR Calculation 84.2 L (90-130) mL/min Glucose 98 (65-115) mg/dL Calculated Osmolal ity 280 L (285-295) mOsm/k g Calcium 9.2 (8.5-10.5) mg/dL Total Bilirubin 0.2 (0.15-1.2) mg/dL AST 15 (0-32) U/L ALT 14 (0-33) U/L Alkaline Phosphata se 79 (35-105) IU/L Total Protein 6.9 (6.6-8.7) g/dL Albumin 4.1 (3.5-5.2) g/dL Globulin 2.8 (1.3-4.6) g/dL Influenza Type A A g Negative (Negative) POC Influenza B Ag Negative (Negative) Discharge Plan Discharge Patient Disposition: Home, Self-Care Clinical Impression: Acute exacerbation of chronic obstructive airways disease Condition: Stable Prescriptions: New doxycycline hyclate 100 mg capsule 100 mg PO BID 7 Days Qty: 14 RF: 0 No Action furosemide 20 mg tablet 20 mg PO DAILY RF: 0 loratadine 10 mg capsule 10 mg PO DAILY RF: 0 levothyroxine 88 mcg capsule 88 mcg PO DAILY RF: 0 Dulera 200-5 mcg/actuation HFA aerosol inhaler 2 puff INHALATION BID RF: 0 olopatadine [Patanol] 0.1 % drops 1 drop ophthalmic (eye) BID RF: 0 albuterol 90 mcg/actuation aerosol INHALATION RF: 0 oxybutynin chloride 5 mg tablet 5 mg PO BID RF: 0 tizanidine [Zanaflex] 4 mg capsule 4 mg PO TID PRNRF: 0 aspirin 81 mg tablet,delayed release (DR/EC) 81 mg PO DAILY RF: 0 lisinopril 10 mg tablet 10 mg PO BID RF: 0 cholecalciferol (vitamin D3) 50 mcg (2,000 unit) capsule 2,000 unit PO DAILY RF: 0 ondansetron HCl [Zofran] 8 mg tablet 8 mg PO Q12H RF: 0 tramadol 50 mg tablet 50 mg PO Q8H PRNRF: 0 baclofen 10 mg tablet 10 mg PO BID Qty: 60 RF: 2 lamotrigine [Lamictal] 100 mg tablet 100 mg PO DAILY Qty: 30 RF: 2 zolpidem [Ambien] 10 mg tablet 10 mg PO .QHS Qty: 30 RF: 2 Discharge Orders: Discharge Order (Routine); Ordered 11/04/19 Ordered By: Cr Carreno Referrals: Merle Adams MD [Primary Care Provider] - 4-7 days Discharge Diet: Usual diet Discharge Activity: Increase activity as tolerated Patient Instructions: Chronic Obstructive Pulmonary Disease (ED) Activity Restrictions/Additional Instructions: Return for worsening shortness of breath, fever greater than 100 despite antibiotics, worsening chest discomfort, other concerning symptoms. You should quarantine yourself at home for 2 weeks, or at least until you hear of negative test results for the novel coronavirus Discharge Date/Time: 11/04/19 21:28 Coding Level of Care Code ED Beater Room Supervisor for Yamileth Oliveira
[2019-11-04 21:28] VITALS: BP 121/78; PULSE 84; RESP 18; O2SAT 95
== END 2019-11-04 21:28 | disposition home or self-care (01) ==
PROVIDERS: Emergency Provider Emergency Medicine; Family Provider Family Medicine; PCP Family Medicine
DX: J44.1 Chronic obstructive pulmonary disease with (acute) exacerbation (principal); F17.210 Nicotine dependence, cigarettes, uncomplicated
CPT/HCPCS: 12345; 71045; 80053; 85025; 87040; 87635; 87804; 94640; 96374; 99283; J2930

== ENCOUNTER → 2019-12-22 07:40 | Outpatient (BNVA) | payer MEDICAID, SELFPAY | PROVIDERS: Family Provider Family Medicine; PCP Family Medicine; Visit Provider Nurse Practitioner | DX: F31.73 Bipolar disorder, in partial remission, most recent episode manic (principal) | CPT/HCPCS: 99213 ==

== ENCOUNTER 2020-02-15 09:49 | Outpatient (CLI) | payer MEDICAID, SELFPAY ==
--- NOTE | 2020-02-15 09:55 | US_ITS ---
WS: [id number] ULTRASOUND SOFT TISSUES neck. HISTORY: DYSPHAGIA COMPARISON: None available. TECHNIQUE: 2-D and color Doppler imaging is submitted. Ultrasound is directed over the area of the neck in the region of discomfort and fullness. There are no masses identified. No adenopathy. Thyroid lobes are normal size. No soft tissue masses. US/US soft tissue head neck [id number] IMPRESSION: Negative ultrasound LEFT neck in the area of pressure.
== END 2020-02-15 09:50 | disposition home or self-care (01) ==
LOC: RAD 09:50
PROVIDERS: Family Provider Family Medicine; PCP Family Medicine; Visit Provider Nurse Practitioner Family
DX: R13.10 Dysphagia, unspecified (principal)
CPT/HCPCS: 76536

== ENCOUNTER 2020-02-21 09:35 | Outpatient (CLI) | payer MEDICAID, SELFPAY ==
--- NOTE | 2020-02-21 10:00 | IR_ITS ---
WS: [id number] Cervical myelogram, 02/21/2020 Clinical Data: cervical pain Comparison: Cervical myelogram, 06/21/2019. Fluoroscopy time: 1.8 minutes. Findings: The patient's back was cleansed with iodine. Then 5 mL of 1% Xylocaine were hand injected into the sk in and subcutaneous tissue of the back by a 30 gauge needle. With the usual technique, a 22 gauge spi nal needle was inserted into the lumbar subarachnoid space at L2-L3. Clear spinal fluid appeared at t he needle hub. The contrast material was hand injected. Approximately 15 mL of 300 mg/mL Omnipaque en tered the lumbar subarachnoid space. The patient was placed into a headdown position and the contrast material flowed normally into the cervical subarachnoid space. On the preliminary image for the lumb ar spine there is an old L1 compression fracture of loss of 25% of the anterior and central vertebral body height. The patient is had an anterior cervical disc fusion of C3-C7. There is a artificial cage from C5 thro ugh C6. There is a prominent spur of the anterior superior margin of C3. No compression fractures are seen. The cervical spinal cord is normal in size. No intramedullary, intradural or extradural defects were seen. Flexion, extension and neutral lateral views demonstrated no limitations of motion or subluxation. Th e anterior cervical disc fusion is stable. IR/IR myelogram sp cervical [id number] Impression: 1. Negative cervical myelogram with no intramedullary, intradural or extradural defects. 2. Anterior cervical disc fusion from C3 through C7 is stable.
[2020-02-21] MEDS: iohexol 300 mg/mL 50 mL Btl INTRATHECA (10:51)
[2020-02-21 10:57] LABS: Prothrombin Time (Patient) 11.6 Seconds (10.5-13.3)
--- NOTE | 2020-02-21 11:30 | CT_ITS ---
WS: [id number] CT cervical spine. Additional two-dimensional coronal and sagittal reconstruction was performed post myelogram. 02/21/2020 Clinical Data: cervical pain Comparison: CT cervical spine by myelogram, 06/21/2019. DLP: 1708.[address] scans at [facility] use at least one of these dose optimization techniques: automat ed exposure control; mA and/or kV adjustment per patient size (includes targeted exams where dose is matched to clinical indication); or iterative reconstruction. Findings: There is an anterior cervical disc fusion from C3 through C6 with a interbody cage device at C5-C6. T here is artificial disc material at C3-C4. There is a spur which connects to the anterior longitudina l ligament at the C2-3 level. No compression fractures are seen. The soft tissues of the neck and the lung apices are not remarkable. C2-C3: No disc bulge, canal stenosis or foraminal stenosis is seen. C3-C4: Posterior osteophyte formation with mild central stenosis and mild foraminal stenosis. C4-C5: Posterior osteophyte encroachment onto the central canal with mild foraminal stenosis. C5-C6: Posterior osteophyte encroachment on the spinal canal with mild foraminal narrowing. C6-C7: Posterior osteophyte encroachment with mild canal stenosis especially on the left. Left forami nal stenosis is seen. Right foraminal stenosis is minimal. C7-T1: No disc bulge, canal stenosis or foraminal stenosis is seen. CT/CT cervical spine w con [id number] Impression: 1. Intact anterior cervical disc fusion from C3 through C6. 2. Multilevel osteoarthritic and posterior spurring causing canal stenosis elizabeth g with multilevel foraminal stenosis, all unchanged.
== END 2020-02-21 09:36 | disposition home or self-care (01) ==
LOC: RADWPI 09:39
PROVIDERS: Family Provider Family Medicine; PCP Family Medicine; Visit Provider Specialist
DX: M54.2 Cervicalgia (principal); Z98.1 Arthrodesis status; M43.22 Fusion of spine, cervical region
CPT/HCPCS: 62302; 72040; 72126; 85610; Q9967

== ENCOUNTER → 2020-03-15 09:26 | Outpatient (BNVA) | payer MEDICAID, SELFPAY | PROVIDERS: Family Provider Family Medicine; PCP Family Medicine; Visit Provider Nurse Practitioner | DX: F31.73 Bipolar disorder, in partial remission, most recent episode manic (principal) | CPT/HCPCS: 99214 ==

== ENCOUNTER → 2020-04-23 14:20 | Outpatient (BNVA) | payer MEDICAID, SELFPAY | PROVIDERS: Family Provider Family Medicine; PCP Family Medicine; Visit Provider Licensed Practical Nurse | DX: M50.020 Cervical disc disorder with myelopathy, mid-cervical region, unspecified level (principal); Z98.1 Arthrodesis status; F17.210 Nicotine dependence, cigarettes, uncomplicated | CPT/HCPCS: 99213 ==

== ENCOUNTER 2020-04-24 10:25 | Outpatient (CLI) | payer MEDICAID, SELFPAY ==
--- NOTE | 2020-04-24 10:30 | FL_ITS ---
WS: [id number] EXAM: MODIFIED BARIUM SWALLOW DATE OF EXAMINATION: 04/24/2020, 1049 hours COMPARISON: None. HISTORY: Patient is 64 years old with difficulty swallowing. FLUOROSCOPY TIME: 2.2 minutes. FINDINGS: Modified barium swallow was performed in routine fashion. In the lateral position patient ingested mu ltiple densities of barium. There is a small amount of dumping demonstrated during the examination. N oted was several bouts of penetration to the level of the cords with thin liquids but no aspiration w as visualized. Patient swallowed a barium tablet which passed into the lower esophagus region without difficulty but she did complaining of symptomatologies of something sticking at that point in time. Extensive postsurgical changes seen in the spine with advanced arthritis C2-3 articulation. FL/FL barium swallow modifd [id number] IMPRESSION: Penetration with thin liquids to the level of the cords. No aspiration seen.
== END 2020-04-24 10:26 | disposition home or self-care (01) ==
LOC: RAD 10:26
PROVIDERS: Family Provider Family Medicine; PCP Family Medicine; Visit Provider Surgery
DX: R13.10 Dysphagia, unspecified (principal)
CPT/HCPCS: 74230; 92611

== ENCOUNTER → 2020-04-26 13:23 | Outpatient (BNVA) | payer MEDICAID, SELFPAY | PROVIDERS: Family Provider Family Medicine; PCP Family Medicine; Visit Provider Surgery | DX: Z20.828 Contact with and (suspected) exposure to other viral communicable diseases (principal) | CPT/HCPCS: 87635 ==

== ENCOUNTER 2020-05-01 07:49 | Day surgery (SDC) | payer MEDICAID, SELFPAY ==
[2020-04-29 13:07] VITALS: BMI 30.2
[2020-05-01 08:04] VITALS: BP 147/83; PULSE 76; RESP 18; TEMP 36.4; O2SAT 97; BMI 30.2
[2020-05-01] MEDS: sodium chloride 0.9% 1,000 ML 30 ML IV (08:20)
[2020-05-01 08:27] VITALS: PULSE 75; RESP 17; O2SAT 98
--- NOTE | 2020-05-01 08:28 | PC.NURSE ---
RT notified for albuterol neb r/t crackles in bilat bases. Anesthesia at bedside.
--- NOTE | 2020-05-01 08:29 | P.ANESASSM_ITS ---
Pre-Anesthetic Assessment Pre-Anesthetic Assessment: Height/Weight: Height 1.57 m Weight 74.843 kg Temp Pulse Resp BP Pulse Ox 97.6 F 76 18 147/83 97 05/01/20 08:04 05/01/20 08:04 05/01/20 08:04 05/01/20 08:04 05/01/20 08:04 Preop Diagnosis: Difficulty in swallowing Proposed Procedure: Operation Date: 05/01/20 08:45 Proposed Procedures p EGD Dysphagia 30897 R13.10(Not Applicable) - Reyes Sherman MD Familial anesthetic complications: Sleepy aftewards Was Beta Dorian taken wi thin 24 hours: N/A Last intake: Intake Last Liquid Date 04/30/20 Last Liquid Time 23:00 Last Solid Date 04/30/20 Last Solid Time 20:00 Social: Social History: Tobacco and No alcohol Exam: Pre-Anes Outpt Exam: alert, oriented x 3, clear to auscultation bilaterally and regular rate & rhythm Additional Exam Findings (including area of procedure): b/l light wheezes Airway: MP: 2 Dentition: False Pulmonary: Pulmonary: COPD GI: Comments: dysphagia Metabolic: Metabolic: Thyroid Neuropsych: Comments: hx quadriplegia and fused C3-6 - now able to move all extremities without any weakness Anesthetic Plan: ASA status: 3 Anesthesia: MAC Risk of > 500 ml blood loss (7ml/kg in children): No PFSH Anesthesia PFSH: Medical History Bipolar disorder, in partial remission, most recent episode manic Cervical disc disorder with myelopathy of mid-cervical region Chronic otitis externa of both ears COPD (chronic obstructive pulmonary disease) Dysphagia Imbalance Osteoarthritis of left AC (acromioclavicular) joint Otalgia of both ears Pseudarthrosis following spinal fusion Traumatic complete tear of left rotator cuff Surgical History H/O spinal fusion H/O: hysterectomy History of ankle surgery History of mandibular surgery Hx of carpal tunnel repair left Hx of section Hx of cholecystectomy S/P left rotator cuff repair Status post cervical spinal fusion C5 corpectomy, C3-C6 anterior [place]fixation[place] [place] Mother Diabetes Stroke Social History (Updated 04/23/20 @ 14:51 by Lindsey Garza LPN) Smoking and tobacco status: current every day smoker cigarettes Packs smoked per day: 1 Alcohol intake: never Household members: significant other Marital status: Single Current occupational status: disabled History of recent travel: No Data Anesthesia Cardiac Studies: No Data to Display
[2020-05-01 08:33] VITALS: PULSE 74; RESP 16; O2SAT 98
--- NOTE | 2020-05-01 09:07 | P.HP_ITS ---
Same Day Surgery H&P Indication for Procedure/HPI DATE OF PROCEDURE: May 01, 2020 CHIEF COMPLAINT/INDICATIONFOR SURGICAL PROCEDURE: Difficulty in swallowing PREOP DIAGNOSIS: Difficulty in swallowing PLANNED PROCEDRUE: Operation Date: 05/01/20 08:45 Proposed Procedures p EGD Dysphagia 22565 R13.10(Not Applicable) - Reyes Sherman MD Patient is a pleasant 64 years old initial presentation to my office with history of difficulty in swallowing. I elected to send the patient for modified barium swallow that showed. FINDINGS: Modified barium swallow was performed in routine fashion. In the lateral position patient ingested multiple densities of barium. There is a small amount of dumping demonstrated during the examination. Noted was several bouts of penetration to the level of the cords with thin liquids but no aspiration was visualized. Patient swallowed a barium tablet which passed into the lower esophagus region without difficulty but she did complaining of symptomatologies of something sticking at that point in time. Extensive postsurgical changes seen in the spine with advanced arthritis C2-3 articulation. FL/FL barium swallow modifd [id number] IMPRESSION: Penetration with thin liquids to the level of the cords. No aspiration seen. Patient comes today for diagnostic EGD with possible biopsy ROS All systems have been reviewed negative except as per the above. Or per problem list Medications/Allergies* Home Medications Medication Instructions Recorded Confirmed Type albuterol 90 mcg/actuation aerosol 90 mcg INHALATION DAILY 09/27/19 04/29/20 History inhaler aspirin 81 mg tablet,delayed 81 mg PO DAILY 09/27/19 04/29/20 History release cholecalciferol (vitamin D3) 50 2,000 unit PO DAILY 09/27/19 04/29/20 History mcg (2,000 unit) capsule furosemide 20 mg tablet 20 mg PO DAILY 09/27/19 04/29/20 History levothyroxine 88 mcg capsule 88 mcg PO DAILY 09/27/19 05/01/20 History lisinopril 10 mg tablet 10 mg PO BID 09/27/19 05/01/20 History loratadine 10 mg capsule 10 mg PO DAILY 09/27/19 04/29/20 History mometasone-formoterol HFA 200 2 puff INHALATION BID 09/27/19 04/29/20 History mcg-5 mcg/actuation aerosol inhaler olopatadine 0.1 % eye drops 1 drop OPHTHALMIC (EYE) BID 09/27/19 04/29/20 History ondansetron HCl 8 mg tablet 8 mg PO Q12H 09/27/19 04/29/20 History oxybutynin chloride 5 mg tablet 5 mg PO BID 09/27/19 04/29/20 History tizanidine 4 mg capsule 4 mg PO TID PRN 09/27/19 04/29/20 History tramadol 50 mg tablet 50 mg PO Q8H PRN 09/27/19 04/29/20 History Allergies/Adverse Reactions Allergy/AdvReac Type Severity Reaction Status Date / Time ciprofloxacin [From Cipro] Allergy rash Verified 05/01/20 09:08 codeine Allergy itch Verified 05/01/20 09:08 fluoxetine [From Prozac] Allergy increased Verified 05/01/20 09:08 suicialthoughts Pertinent History/Comorbid Conditions* Medical History (Updated 04/24/20 @ 11:01 by Maddy Soto APRN) Bipolar disorder, in partial remission, most recent episode manic Cervical disc disorder with myelopathy of mid-cervical region Chronic otitis externa of both ears COPD (chronic obstructive pulmonary disease) Dysphagia Imbalance Osteoarthritis of left AC (acromioclavicular) joint Otalgia of both ears Pseudarthrosis following spinal fusion Traumatic complete tear of left rotator cuff Surgical History (Updated 02/26/20 @ 13:49 by Reyes Sherman MD) H/O spinal fusion H/O: hysterectomy History of ankle surgery History of mandibular surgery Hx of carpal tunnel repair left Hx of section Hx of cholecystectomy S/P left rotator cuff repair Status post cervical spinal fusion C5 corpectomy, C3-C6 anterior [place]ation[place] [place] Family History (Updated 09/13/19 @ 14:24 by Nelly Ogden LPN) Diabetes Mother Stroke Mother Social History Smoking and tobacco status: current every day smoker cigarettes Packs smoked per day: 1 Alcohol intake: never Household members: significant other Marital status: Single Current occupational status: disabled History of recent travel: No Pertinent Exam Findings alert, oriented x 3, clear to auscultation bilaterally, regular rate & rhythm and procedure specific exam findings (Abdominal examination nontender nondistended soft, right paramedian scar and lower midline scar) Recommendations Surgery/Procedure today (Diagnostic EGD with possible biopsy) Coding Level of Care Code Acute Mathematics Instructor for Chg Fwsis
[2020-05-01 09:27] VITALS: BP 119/70; PULSE 89; RESP 18; TEMP 36.2; O2SAT 98
--- NOTE | 2020-05-01 09:32 | ANE.PACU2 ---
Inpatient post-anesthesia follow up: Airway intact: Yes Vital signs: Temperature 97.6 F Pulse Rate 74 Respiratory Rate 16 Blood Pressure 147/83 Pulse Oximetry 98 Oxygen Delivery Me thod Room Air Oxygen Flow Rate Fraction of Inspir ed Oxygen Hydration adequate: Yes Nausea and vomiting: No Pain level: 1 Mental status: Baseline
[2020-05-01 09:45] VITALS: BP 113/72; PULSE 70; RESP 18; O2SAT 100
[2020-05-02 06:11] LABS: H. Pylori / CLO Test Negative
== END 2020-05-01 09:54 | disposition home or self-care (01) ==
PROVIDERS: PCP Nurse Practitioner Family; Visit Provider Surgery
PROC: 0DJ08ZZ Inspection of Upper Intestinal Tract, Via Natural or Artificial Opening Endoscopic (ICD-10-PCS; CPT 43235; principal; 2020-05-01 08:45)
DX: R13.10 Dysphagia, unspecified (principal); K44.9 Diaphragmatic hernia without obstruction or gangrene; Q27.30 Arteriovenous malformation, site unspecified; K29.70 Gastritis, unspecified, without bleeding; Z79.82 Long term (current) use of aspirin; J44.9 Chronic obstructive pulmonary disease, unspecified; M19.012 Primary osteoarthritis, left shoulder; Z98.1 Arthrodesis status; F17.210 Nicotine dependence, cigarettes, uncomplicated
CPT/HCPCS: 12345; 43239; 87077; 94640; J2704; J7030

== ENCOUNTER → 2020-05-27 08:16 | Outpatient (BNVA) | payer MEDICAID, SELFPAY | PROVIDERS: PCP Nurse Practitioner Family; Visit Provider Nurse Practitioner | DX: F31.73 Bipolar disorder, in partial remission, most recent episode manic (principal) | CPT/HCPCS: 99213 ==

== ENCOUNTER → 2020-10-30 07:44 | Outpatient (BNVA) | payer MEDICAID, SELFPAY | PROVIDERS: PCP Nurse Practitioner Family; Visit Provider Nurse Practitioner | DX: F31.73 Bipolar disorder, in partial remission, most recent episode manic (principal) | CPT/HCPCS: 99214 ==

== ENCOUNTER → 2021-03-20 07:50 | Outpatient (BNVA) | payer MEDICAID, SELFPAY | PROVIDERS: PCP Nurse Practitioner Family; Visit Provider Nurse Practitioner | DX: F31.81 Bipolar II disorder (principal) | CPT/HCPCS: 99214 ==

== ENCOUNTER → 2021-08-15 07:33 | Outpatient (BNVA) | payer MEDICAID, SELFPAY | PROVIDERS: PCP Nurse Practitioner Family; Visit Provider Nurse Practitioner | DX: F31.81 Bipolar II disorder (principal) | CPT/HCPCS: 99214 ==

== ENCOUNTER 2021-09-04 17:10 | Outpatient (CLI) | payer MEDICAID, SELFPAY ==
--- NOTE | 2021-09-04 17:22 | XR_ITS ---
WS: [id number] RIGHT SHOULDER: 2 VIEW(S) TECHNIQUE: Internal and external rotation. HISTORY: shoulder joint pain COMPARISON: 09/30/2010 No fracture or dislocation or soft tissue abnormality. Mild narrowing of the AC joint. Minimal hypertrophic bone formation involving the distal clavicle. No calcifications along the rotator cuff. Prior cervical fusion hardware. Healed fracture posterior seventh rib. XR/XR shoulder RT min 2V* [id number] IMPRESSION: 1. Mild AC joint arthritis, similar to the prior study. 2. No fracture.
== END 2021-09-04 17:11 | disposition home or self-care (01) ==
PROVIDERS: Visit Provider Nurse Practitioner Family
DX: M19.011 Primary osteoarthritis, right shoulder (principal)
CPT/HCPCS: 73030

== ENCOUNTER → 2021-09-05 13:35 | Outpatient (BNVA) | payer MEDICAID, SELFPAY | PROVIDERS: Visit Provider Nurse Practitioner | DX: F31.81 Bipolar II disorder (principal) | CPT/HCPCS: 99214 ==

== ENCOUNTER 2021-09-25 14:14 | Outpatient (CLI) | payer MEDICAID, SELFPAY ==
--- NOTE | 2021-09-25 14:15 | CT_ITS ---
WS: [id number] CT HEAD TECHNIQUE: Noncontrast and contrast-enhanced CT of the head. CLINICAL INFORMATION: HX OF HEAD INJURY/FREQUENT FALLS/VISION CHANGES COMPARISON: CT head September 01, 2019 and MRI September 12, 2019 DLP: 1158.[address] scans at [facility] use at least one of these dose optimization techniques: automated e xposure control; mA and/or kV adjustment per patient size (includes targeted exams where dose is matc hed to clinical indication); or iterative reconstruction. FINDINGS: No evidence of intracranial hemorrhage or mass effect. Ventricular system and basal cisterns are crump nt. No hydrocephalus. No extra-axial fluid collections. Normal rankin-white differentiation. Normal pos terior fossa. No abnormal intracranial enhancement. No enhancing intracranial lesions. Normal visualized dural veno us sinuses. Paranasal sinuses and mastoid air cells are well aerated. Normal posterior nasopharynx. CT/CT head wo/w con [id number] IMPRESSION: 1. No evidence of intracranial hemorrhage or mass effect. 2. Normal rankin-white differentiation. 3. No hydrocephalus. Intracranial contents appear stable since September 01 0. 4. No enhancing intracranial lesions. 5. No other significant findings.
[2021-09-25 15:45] LABS: Blood Urea Nitrogen 8 mg/dL (8-23); Glomerular Filtration Rate 62.6 mL/min (90-130)
[2021-09-25] MEDS: iohexol 300 mg/mL 100 mL Btl IV (15:55)
== END 2021-09-25 14:15 | disposition home or self-care (01) ==
PROVIDERS: PCP Nurse Practitioner Family; Visit Provider Nurse Practitioner Family
DX: Z87.828 Personal history of other (healed) physical injury and trauma (principal)
CPT/HCPCS: 70470; 82565; 84520

== ENCOUNTER → 2021-10-03 07:25 | Outpatient (BNVA) | payer MEDICAID, SELFPAY | PROVIDERS: PCP Nurse Practitioner Family; Visit Provider Nurse Practitioner | DX: F31.81 Bipolar II disorder (principal) | CPT/HCPCS: 99214 ==

== ENCOUNTER 2021-10-04 18:49 | Emergency (ER) | payer MEDICAID, SELFPAY ==
[2021-10-04 19:00] VITALS: BP 191/111; PULSE 84; RESP 20; TEMP 36.8; O2SAT 99; BMI 27.6
--- NOTE | 2021-10-04 19:24 | W.ED.NECK ---
Documented by User: YESENIA Garcia 10/04/21 19:48 HPI - Neck Pain/Injury General: Chief Complaint: Neck Pain/Injury Stated Complaint: pain behind L ear down into neck Time Seen by Provider: 10/04/21 19:09 History of Present Illness: Patient complains about left-sided neck pain for the last few weeks getting worse with spasms at times. States medications not helping. Also states that her right shoulder has limited mobility and she is seeing Dr. Mane venegas for that. Patient has a history of neck fusion and rotator cuff repair on the left side also. Denies current shortness of breath. Patient does has a history of COPD. Associated symptoms: Denies headache(s) or nausea Review of Systems Const: Denies: fever(s), chills or body aches Eyes: Denies: eye discomfort ENMT: Denies: throat pain Card: Denies: chest pain Resp: Denies: dyspnea GI: Denies: abdominal pain, nausea or vomiting Musc: Reports: neck pain and muscle cramps (Left trapezius area, history of cervical spine fusion.) Skin/Breast: Denies: rash Neuro: Denies: headache(s) Psych: Denies: depression or suicidal ideation PFSH ED PFSH: Medical History (Updated 10/04/21 @ 19:24 by YESENIA Garcia) Bipolar disorder, in partial remission, most recent episode manic Bipolar II disorder Cervical disc disorder with myelopathy of mid-cervical region Chronic otitis externa of both ears COPD (chronic obstructive pulmonary disease) Dysphagia Imbalance Osteoarthritis of left AC (acromioclavicular) joint Otalgia of both ears Pseudarthrosis following spinal fusion Traumatic complete tear of left rotator cuff Surgical History H/O spinal fusion H/O: hysterectomy History of ankle surgery History of mandibular surgery Hx of carpal tunnel repair left Hx of section Hx of cholecystectomy S/P left rotator cuff repair Status post cervical spinal fusion C5 corpectomy, C3-C6 anterior fusion[place]fixation[place] [place] Mother Diabetes Stroke Social History Smoking and tobacco status: current every day smoker cigarettes Packs smoked per day: 2 Years cigarettes smoked: 50 Alcohol intake: never Household members: significant other Marital status: Single Current occupational status: disabled History of recent travel: No Physical Exam Const: COMMON NORMALS: no acute distress, patient oriented x3 and alert HENMT: COMMON NORMALS: normocephalic and external ears normal HEAD & SCALP: normocephalic EXTERNAL EAR: Yes external ears normal Eye: COMMON NORMALS: EOMs intact bilaterally Neck/C-Spine: COMMON NORMALS: no JVD OTHER: Tender left trapezius from base of skull to anterior neck out to the shoulder area. Resp: COMMON NORMALS: normal respiratory effort and No use of accessory muscles AUSCULTATION: diminished lung sounds Cardio: COMMON NORMALS: no JVD GI: INSPECTION: Yes normal to inspection Back/Pelvis: GENERAL BACK: Yes other (Left trapezius tenderness., Neurological intact. Distally) Extremity: COMMON NORMALS: normal to inspection and full ROM Neuro: COMMON NORMALS: patient oriented x3 SENSORIUM/ORIENTATION: Yes alert Psych: COMMON NORMALS: mental status grossly normal Skin: COMMON NORMALS: no rashes or lesions noted GENERAL SKIN EXAM: no rashes or lesions noted Course Vital Signs: Vital signs: Vital Signs Temperature 98.2 F 10/04/21 19:00 Pulse Rate 78 10/04/21 19:47 Respiratory Rate 18 10/04/21 19:47 Blood Pressure 198/102 10/04/21 19:47 Pulse Oximetry 95 10/04/21 19:47 MDM - Neck Pain/Injury Medical Decision Making Patient has ongoing neck trapezius discomfort. Patient most likely has stenosis with irritation nerve root left trapezius area. Diagnosis cervical radiculopathy. Patient is going to see Dr. Gilliam in the coming week. Some medications were put on hold are stopped and new medication was provided. Massage would be of benefit to patient. Patient to speak to Dr. Gilliam see if possibly seeing Dr. Fletcher would be of benefit. Patient is not having shortness of breath sats are 99% patient does have a history of COPD. Discharge Plan Discharge Patient Disposition: Home Clinical Impression: Trapezius muscle spasm Condition: Stable Prescriptions: New Celebrex 100 mg capsule 200 mg PO BID Qty: 20 0RF Voltaren Arthritis Pain 1 % gel 4 g topical QID Qty: 100 0RF Rx Instructions: apply to single knee, ankle, foot; for foot includes sole/toes/top of foot cyclobenzaprine 5 mg tablet 5 mg PO TID PRN (Reason: muscle spasm) Qty: 10 0RF Discontinued tizanidine [Zanaflex] 4 mg capsule 4 mg PO TID PRN (Reason: unknown) 0RF baclofen 10 mg tablet 10 mg PO BID Qty: 60 2RF diclofenac potassium 50 mg tablet 50 mg PO TID PRN0RF No Action furosemide 20 mg tablet 20 mg PO DAILY 0RF loratadine 10 mg capsule 10 mg PO DAILY 0RF levothyroxine 88 mcg capsule 88 mcg PO DAILY 0RF Dulera 200-5 mcg/actuation HFA aerosol inhaler 2 puff INHALATION BID 0RF olopatadine [Patanol] 0.1 % drops 1 drop ophthalmic (eye) BID 0RF albuterol 90 mcg/actuation aerosol 90 mcg INHALATION DAILY 0RF oxybutynin chloride 5 mg tablet 5 mg PO BID 0RF aspirin 81 mg tablet,delayed release (DR/EC) 81 mg PO DAILY 0RF Hold Instructions: Resume on 05/04/20. lisinopril 10 mg tablet 10 mg PO BID 0RF cholecalciferol (vitamin D3) 50 mcg (2,000 unit) capsule 2,000 unit PO DAILY 0RF ondansetron HCl [Zofran] 8 mg tablet 8 mg PO Q12H 0RF gabapentin 100 mg capsule 200 mg PO TID 0RF triamcinolone acetonide 0.1 % cream 1 applic topical TID 0RF albuterol sulfate 2.5 mg/0.5 mL solution for nebulization 2.5 mg inhalation Q20M 0RF Rx Instructions: for up to 3 doses Depo-Estradiol 5 mg/mL oil IM 0RF potassium chloride 10 mEq tablet extended release 10 meq PO DAILY 0RF fluticasone propionate 50 mcg/actuation spray,suspension 2 spray intranasal DAILY 0RF Rx Instructions: administer into each nostril lamotrigine [Lamictal] 150 mg tablet 75 mg PO DAILY Qty: 30 2RF zolpidem [Ambien] 5 mg tablet 5 mg PO .HS Qty: 30 1RF Protonix 40 mg tablet,delayed release (DR/EC) 40 mg PO DAILY 30 Days Qty: 30 2RF Discharge Orders: Discharge ED (Routine); Ordered 02/26/22 Ordered By: Eulalio Haas Referrals: Char Del Cid FNP [Primary Care Provider] - Discharge Diet: Usual diet Discharge Activity: Increase activity as tolerated Patient Instructions: Cervical Radiculopathy (ED) Activity Restrictions/Additional Instructions: Follow-up with medical provider as directed. Take medications as prescribed. Return to the ER or your medical provider if condition worsens. Please read and understand discharge instructions. If any questions ask please. Coding Level of Care Code ED Marine Equipment Engineer for Chg Fwd Exam Comprehensive Documented by User: Cr Carreno, 10/04/21 22:20 HPI - Neck Pain/Injury General: Chief Complaint: Neck Pain/Injury Stated Complaint: pain behind L ear down into neck Time Seen by Provider: 10/04/21 19:09 [facility] PFSH: Medical History (Updated 10/04/21 @ 19:24 by YESENIA Garcia) Bipolar disorder, in partial remission, most recent episode manic Bipolar II disorder Cervical disc disorder with myelopathy of mid-cervical region Chronic otitis externa of both ears COPD (chronic obstructive pulmonary disease) Dysphagia Imbalance Osteoarthritis of left AC (acromioclavicular) joint Otalgia of both ears Pseudarthrosis following spinal fusion Traumatic complete tear of left rotator cuff Surgical History H/O spinal fusion H/O: hysterectomy History of ankle surgery History of mandibular surgery Hx of carpal tunnel repair left Hx of section Hx of cholecystectomy S/P left rotator cuff repair Status post cervical spinal fusion C5 corpectomy, C3-C6 anterior fusion[place]fixation[place] [place] Mother Diabetes Stroke Social History Smoking and tobacco status: current every day smoker cigarettes Packs smoked per day: 2 Years cigarettes smoked: 50 Alcohol intake: never Household members: significant other Marital status: Single Current occupational status: disabled History of recent travel: No Course Vital Signs: Vital signs: Vital Signs Temperature 98.2 F 10/04/21 19:00 Pulse Rate 78 10/04/21 19:47 Respiratory Rate 18 10/04/21 19:47 Blood Pressure 198/102 10/04/21 19:47 Pulse Oximetry 95 10/04/21 19:47 MDM - Neck Pain/Injury Medical Decision Making Patient has ongoing neck trapezius discomfort. Patient most likely has stenosis with irritation nerve root left trapezius area. Diagnosis cervical radiculopathy. Patient is going to see Dr. Gilliam in the coming week. Some medications were put on hold are stopped and new medication was provided. Massage would be of benefit to patient. Patient to speak to Dr. Gilliam see if possibly seeing Dr. Fletcher would be of benefit. Patient is not having shortness of breath sats are 99% patient does have a history of COPD. This patient was originally seen by YESENIA Garcia.? I agree with his history, evaluation, and treatment. Discharge Plan Discharge Patient Disposition: Home Clinical Impression: Trapezius muscle spasm Condition: Stable Prescriptions: New Celebrex 100 mg capsule 200 mg PO BID Qty: 20 0RF Voltaren Arthritis Pain 1 % gel 4 g topical QID Qty: 100 0RF Rx Instructions: apply to single knee, ankle, foot; for foot includes sole/toes/top of foot cyclobenzaprine 5 mg tablet 5 mg PO TID PRN (Reason: muscle spasm) Qty: 10 0RF Discontinued tizanidine [Zanaflex] 4 mg capsule 4 mg PO TID PRN (Reason: unknown) 0RF baclofen 10 mg tablet 10 mg PO BID Qty: 60 2RF diclofenac potassium 50 mg tablet 50 mg PO TID PRN0RF No Action furosemide 20 mg tablet 20 mg PO DAILY 0RF loratadine 10 mg capsule 10 mg PO DAILY 0RF levothyroxine 88 mcg capsule 88 mcg PO DAILY 0RF Dulera 200-5 mcg/actuation HFA aerosol inhaler 2 puff INHALATION BID 0RF olopatadine [Patanol] 0.1 % drops 1 drop ophthalmic (eye) BID 0RF albuterol 90 mcg/actuation aerosol 90 mcg INHALATION DAILY 0RF oxybutynin chloride 5 mg tablet 5 mg PO BID 0RF aspirin 81 mg tablet,delayed release (DR/EC) 81 mg PO DAILY 0RF Hold Instructions: Resume on 05/04/20. lisinopril 10 mg tablet 10 mg PO BID 0RF cholecalciferol (vitamin D3) 50 mcg (2,000 unit) capsule 2,000 unit PO DAILY 0RF ondansetron HCl [Zofran] 8 mg tablet 8 mg PO Q12H 0RF gabapentin 100 mg capsule 200 mg PO TID 0RF triamcinolone acetonide 0.1 % cream 1 applic topical TID 0RF albuterol sulfate 2.5 mg/0.5 mL solution for nebulization 2.5 mg inhalation Q20M 0RF Rx Instructions: for up to 3 doses Depo-Estradiol 5 mg/mL oil IM 0RF potassium chloride 10 mEq tablet extended release 10 meq PO DAILY 0RF fluticasone propionate 50 mcg/actuation spray,suspension 2 spray intranasal DAILY 0RF Rx Instructions: administer into each nostril lamotrigine [Lamictal] 150 mg tablet 75 mg PO DAILY Qty: 30 2RF zolpidem [Ambien] 5 mg tablet 5 mg PO .HS Qty: 30 1RF Protonix 40 mg tablet,delayed release (DR/EC) 40 mg PO DAILY 30 Days Qty: 30 2RF Discharge Orders: Discharge ED (Routine); Ordered 10/04/21 Ordered By: Eulalio Haas Referrals: Char Del Cid FNP [Primary Care Provider] - Discharge Diet: Usual diet Discharge Activity: Increase activity as tolerated Patient Instructions: Cervical Radiculopathy (ED) Activity Restrictions/Additional Instructions: Follow-up with medical provider as directed. Take medications as prescribed. Return to the ER or your medical provider if condition worsens. Please read and understand discharge instructions. If any questions ask please. Coding Level of Care Code ED Marine Equipment Engineer for Yamileth Fwsis Exam Comprehensive
[2021-10-04] MEDS: ketorolac 60 mg/2 mL INJ IM (19:40)
[2021-10-04] MEDS: orphenadrine 30 mg/mL Inj 2 mL 60 MG IM (19:40)
[2021-10-04 19:47] VITALS: BP 198/102; PULSE 78; RESP 18; O2SAT 95
== END 2021-10-04 19:48 | disposition home or self-care (01) ==
PROVIDERS: Emergency Provider Nurse Practitioner Family; PCP Nurse Practitioner Family
DX: M62.838 Other muscle spasm (principal); Z79.82 Long term (current) use of aspirin; J44.9 Chronic obstructive pulmonary disease, unspecified; F17.210 Nicotine dependence, cigarettes, uncomplicated
CPT/HCPCS: 96372; 99283; J1885; J2360

== ENCOUNTER → 2021-10-09 10:38 | Outpatient (BNVA) | payer MEDICAID, SELFPAY | PROVIDERS: PCP Nurse Practitioner Family; Visit Provider Orthopaedic Surgery | DX: M62.838 Other muscle spasm (principal); Z98.1 Arthrodesis status | CPT/HCPCS: 72050 ==

== ENCOUNTER 2021-10-14 13:06 | Emergency (ER) | payer MEDICAID, SELFPAY ==
[2021-10-14 13:14] VITALS: BP 156/84; PULSE 92; RESP 18; TEMP 36.7; O2SAT 98; BMI 25.6
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
--- NOTE | 2021-10-14 14:17 | CT_ITS ---
WS: [id number] CT HEAD NONCONTRAST HISTORY: ams TECHNIQUE: Contiguous axial imaging performed through the brain in 2.5 mm imaging. Bone and soft tiss ue windows. Sagittal and coronal reformats reviewed. All CT scans at [facility] use at least one of these dose optimization techniques: automated exposure control; mA and/or kV adjustment per pa tient size (includes targeted exams where dose is matched to clinical indication); or iterative recon struction. DLP: 865.24 mGy.cm COMPARISON: 09/25/2021 No acute intracranial hemorrhage, midline shift or mass effect. No significant atrophy. No sulcal effacement. No prior infarct. Ventricles: Normal size with no hydrocephalus. No inferior displacement of cerebellar tonsils. Paranasal sinuses: Mild thickening throughout the nasal cavity. Small amount of debris in the maxilla ry sinuses. Mastoid air cells: Well pneumatized. Calvarium and scalp: Skull is intact with no soft tissue edema or swelling. CT/CT head wo con* [id number] IMPRESSION: 1. No acute intracranial hemorrhage or edema. 2. Stable noncontrast head CT. Similar to 09/25/2021.
--- NOTE | 2021-10-14 14:17 | XRR_ITS ---
PROCEDURE INFORMATION: Exam: XR Right Shoulder Exam date and time: 10/14/2021 2:17 PM Age: 66 years old Clinical indication: Pain; Shoulder; Right; Additional info: Shoulder pain TECHNIQUE: Imaging protocol: XR Right shoulder. Views: 2 or more views. COMPARISON: CR XR shoulder RT min 2V* [id number] 09/04/2021 5:23 PM FINDINGS: Bones/joints: Osseous structures are intact. Negative for fracture or dislocation. Soft tissues: Normal. XR/XR shoulder RT min 2V* [id number] IMPRESSION: No acute findings.
--- NOTE | 2021-10-14 14:17 | XRR_ITS ---
PROCEDURE INFORMATION: Exam: XR Right Foot Exam date and time: 10/14/2021 2:17 PM Age: 66 years old Clinical indication: Pain; Foot; Right; Additional info: Foot pain TECHNIQUE: Imaging protocol: XR Right foot. Views: 1 or 2 views. COMPARISON: CR Ankle 3 views, RIGHT* 11/11/2015 1:26 PM FINDINGS: Bones/joints: Osseous structures are intact. Negative for fracture. Joint spaces are preserved. ORIF hardware noted within the distal fibula. Soft tissues: Normal. XR/XR foot RT 2V [id number] IMPRESSION: No acute findings.
--- NOTE | 2021-10-14 14:17 | XRR_ITS ---
PROCEDURE INFORMATION: Exam: XR Left Shoulder Exam date and time: 10/14/2021 2:17 PM Age: 66 years old Clinical indication: Pain; Shoulder; Bilateral; Additional info: Shoulder pain TECHNIQUE: Imaging protocol: XR Left shoulder. Views: 2 or more views. COMPARISON: CR Shoulder 2+ views, LEFT* 03/29/2019 1:51 PM FINDINGS: Bones/joints: Osseous structures are intact. Negative for fracture. Rotator cuff anchor noted in the left humeral head. Sequela of biceps tenodesis and subacromial decompression noted. Sequela of ACDF in the midcervical spine. Soft tissues: Normal. XR/XR shoulder LT min 2V* [id number] IMPRESSION: No acute findings.
--- NOTE | 2021-10-14 14:18 | ECG_ITS ---
[facility] Test Date: 2021-10-14 Pat Name: Ernestine Nunez Department: Room: Gender: Female Clinical Education Assistant: : 1955 Requested By: Angelica Kidd Order Number: [id number] Monalisa MD: Mehdi Pete M.D. Measurements Intervals [place] Rate: 78 P: 82 NE: 169 QRS: 70 QRSD: 76 T: 62 QT: 382 QTc: 437 Interpretive Statements SINUS RHYTHM POSSIBLE LEFT ATRIAL ENLARGEMENT [-0.1mV P-WAVE IN V1/V2] SEPTAL MYOCARDIAL INFARCTION , OF INDETERMINATE AGE [40+ ms Q WAVE IN V1/V2] Compared to ECG 09/01/2019 13:46:14 Myocardial infarct finding now present Electronically Signed On 10-14-2021 17:29:09 POSTAL TRANSPORTATION CLERK by Mehdi Pete M.D. [id number]
[2021-10-14 15:02] VITALS: BP 137/67; PULSE 91; RESP 18; O2SAT 96
[2021-10-14 15:03] LABS: Add Urine Microscopic? NO; Charge for UA Resulting for Rev
[2021-10-14 15:11] LABS: Bilirubin Urine Neg (Negative); Blood Urine Neg (Negative); Glucose Urine UA Norm (Normal); Ketones Urine Negative (Negative); Leukocyte Esterase Urine Negative (Negative); Nitrate Urine Negative (Negative); Protein Urine Neg (Negative); Specific Gravity, Urine 1.025 (1.005-1.030); Urine Appearance Clear (CLEAR); Urine Color Yellow (Yellow); Urobilinogen Urine Norm (Negative); pH Urine 5 (5-7)
[2021-10-14 15:26] LABS: Amphetamines Screen Urine Positive (Negative); Barbiturates Screen Urine Negative (Negative); Benzodiazepines Screen Urine Negative (Negative); Cocaine Screen Urine Negative (Negative); Opiate Screen Urine Negative (Negative); PCP Screen Urine Negative (Negative); THC Screen Urine Positive (Negative)
[2021-10-14 15:35] LABS: Basophils # 0.1 10^3/uL (0.0-0.1); Basophils % 0.9 %; Eosinophils # 0.2 10^3/uL (0.0-0.8); Eosinophils % 3.6 %; Hematocrit 32.2 % (37.0-47.0); Hemoglobin 10.3 g/dL (11.5-15.3); Lymphocytes # 1.1 10^3/uL (0.8-4.8); Lymphocytes % 19.1 %; Mean Corpuscular Hemoglobin 28.9 pg (28.0-34.0); Mean Corpuscular Volume 90.4 fl (81-99); Mean Platelet Volume 11.4 fL (7.4-10.4); Monocytes # 1.1 10^3/uL (0.2-0.9); Monocytes % 19.5 %; Neutrophils # 3.17 10^3/uL (1.8-7.7); Neutrophils % 56.7 %; Nucleated Red Blood Cells % 0 %; Platelet Count 183 10^3/cmm (130-400); Red Blood Count 3.56 10^6/uL (4.1-5.3); Red Cell Distribution Width 13.3 % (12.1-15.1); White Blood Count 5.6 10^3/uL (4.0-10.0)
[2021-10-14 16:07] LABS: Alanine Aminotransferase 37 U/L (0-33); Albumin Level 4.1 g/dL (3.5-5.2); Alkaline Phosphatase 77 IU/L (35-105); Anion Gap 16.4 (5-19); Aspartate Amino Transferase 38 U/L (0-32); Blood Urea Nitrogen 9 mg/dL (8-23); Calcium 8.7 mg/dL (8.5-10.5); Carbon Dioxide 21 mmol/L (22-29); Chloride 104 mmol/L (98-107); Glomerular Filtration Rate 159.7 mL/min (90-130); Glucose 99 mg/dL (65-115); Osmolality Calculated 285 mOsm/kg (285-295); Potassium 3.4 mmol/L (3.5-5.1); Sodium 138 mmol/L (136-145); Total Bilirubin 0.3 mg/dL (0.15-1.2); Total Protein 7.1 g/dL (6.6-8.7)
[2021-10-14 16:08] LABS: Acetaminophen < 5.0 ug/mL (10-30); Salicylate < 0.3 mg/dL (3-10)
[2021-10-14 16:30] LABS: Free T4 Free Thyroxine 1.12 ng/dL (0.82-1.77)
[2021-10-14 17:09] VITALS: BP 156/93; PULSE 106; RESP 20; O2SAT 94
== END 2021-10-14 17:10 | disposition home or self-care (01) ==
PROVIDERS: Emergency Provider Emergency Medicine; PCP Nurse Practitioner Family
DX: M79.671 Pain in right foot (principal); W18.09XA Striking against other object with subsequent fall, initial encounter; Z79.82 Long term (current) use of aspirin; J44.9 Chronic obstructive pulmonary disease, unspecified; F17.210 Nicotine dependence, cigarettes, uncomplicated
CPT/HCPCS: 70450; 73030; 73620; 80053; 80306; 80307; 81003; 84439; 84443; 85025; 93005; 99283

== ENCOUNTER → 2021-10-29 10:46 | Outpatient (BNVA) | payer MEDICAID, SELFPAY | PROVIDERS: PCP Nurse Practitioner Family; Referring Provider Nurse Practitioner Family; Visit Provider Specialist | DX: M25.511 Pain in right shoulder (principal) | CPT/HCPCS: 73030 ==

== ENCOUNTER → 2022-01-01 13:41 | Outpatient (BNVA) | payer MEDICAID, SELFPAY | PROVIDERS: PCP Nurse Practitioner Family; Visit Provider Nurse Practitioner | DX: F31.81 Bipolar II disorder (principal) | CPT/HCPCS: 99214 ==

== ENCOUNTER 2022-01-06 11:06 | Outpatient (CLI) | payer MEDICAID, SELFPAY ==
--- NOTE | 2022-01-06 08:00 | MR_ITS ---
WS: [email or web address] MRI RIGHT SHOULDER NONCONTRAST TECHNIQUE: Sagittal T2, coronal T1, T2 and proton density imaging. Axial gradient PDE imaging. CLINICAL INFORMATION: M25.511 - Pain in right shoulder COMPARISON: None. FINDINGS: Some images degraded by patient motion. Moderate degenerative arthritis AC joint with associated edema. Mild downsloping acromion with slight subacromial spurring. Supraspinatus insertional tear with a small amount of retraction measuring 11 mm. Chronic thinning of the supraspinatus. Normal infraspinatus. Normal teres minor. Normal subscapul jong. Tendinopathy in the distal infraspinatus. Small amount of subacromial/subdeltoid fluid. Biceps tendon appears intact within the bicipital groove. Intra-articular biceps tendon appears intac t. Advanced osteoarthritis of the glenohumeral joint. MR/MR shoulder RT wo con* [id number] IMPRESSION: Some images degraded by patient motion. 1. Moderate degenerative arthritis AC joint with fluid and edema. 2. Supraspinatus insertional tear with retraction measuring approximately 11 m m. 3. Tendinopathy in the infraspinatus. 4. Rotator cuff is otherwise intact. 5. Biceps tendon appears intact in the bicipital groove. 6. Advanced degenerative arthritis glenohumeral joint.
== END 2022-01-06 11:07 | disposition home or self-care (01) ==
LOC: RAD 11:08
PROVIDERS: PCP Nurse Practitioner Family; Visit Provider Specialist
DX: M25.511 Pain in right shoulder (principal); M19.011 Primary osteoarthritis, right shoulder; S46.011A Strain of muscle(s) and tendon(s) of the rotator cuff of right shoulder, initial encounter
CPT/HCPCS: 73221

== ENCOUNTER 2022-01-20 10:13 | Outpatient (CLI) | payer MEDICAID, SELFPAY ==
--- NOTE | 2022-01-20 10:21 | MM_ITS ---
WS: [email or web address] BILATERAL SCREENING DIGITAL BREAST TOMOSYNTHESIS MAMMOGRAM WITH CAD HISTORY: SCREEN COMPARISON: 01/22/2014 Bilateral CC and MLO views with tomosynthesis and synthetic mammography submitted. Computer aided det ection analyzed. Breast composition: The breasts are heterogeneously dense, which may obscure small masses. No suspici ous masses, microcalcifications or architectural distortion. Long-term stability of 2 masses in the l ateral RIGHT breast. Benign calcifications in each breast and scattered asymmetries. MM/[place] [id number] IMPRESSION: BI-RADS: 2-Benign FOLLOW UP: 1 Year Follow-up
== END 2022-01-20 10:14 | disposition home or self-care (01) ==
LOC: RAD 10:16
PROVIDERS: PCP Nurse Practitioner Family; Visit Provider Nurse Practitioner Family
DX: Z12.31 Encounter for screening mammogram for malignant neoplasm of breast (principal)
CPT/HCPCS: 77063; 77067

== ENCOUNTER → 2022-01-22 09:10 | Outpatient (BNVA) | payer MEDICAID, SELFPAY | PROVIDERS: PCP Nurse Practitioner Family; Visit Provider Specialist | DX: M19.011 Primary osteoarthritis, right shoulder (principal); M75.111 Incomplete rotator cuff tear or rupture of right shoulder, not specified as traumatic | CPT/HCPCS: 99213 ==

== ENCOUNTER → 2022-01-29 14:39 | Outpatient (BNVA) | payer MEDICAID, SELFPAY | PROVIDERS: PCP Nurse Practitioner Family; Visit Provider Nurse Practitioner | DX: F31.81 Bipolar II disorder (principal) | CPT/HCPCS: 99214 ==

== ENCOUNTER 2022-02-02 14:07 | Outpatient (CLI) | payer MEDICAID, SELFPAY ==
--- NOTE | 2022-02-02 15:10 | MR_ITS ---
WS: [email or web address] MRI CERVICAL SPINE NONCONTRAST TECHNIQUE: Sagittal T1, T2 and STIR imaging. Axial T2, gradient, and fiesta imaging. CLINICAL INFORMATION: M50.020 - Cervical disc disorder with myelopathy, mid-cer... COMPARISON: CT cervical February 21, 2020 and MRI October 09, 2019 FINDINGS: Straightening of the normal cervical lordosis. Prior postoperative changes ACDF C3-C6 with interbody fusion grafts. Corpectomy at C5. Alignment appears unchanged. Cord signal is normal. C2-C3: Disc osteophyte complex with endplate ridging. Mild LEFT and no significant RIGHT foraminal na rrowing. Mild facet arthropathy. Spinal canal is patent. C3-C4: Postoperative changes ACDF. Moderate LEFT and mild RIGHT bony foraminal narrowing. Mild facet arthropathy. C4-C5: Postoperative changes ACDF. Moderate LEFT and mild RIGHT bony foraminal narrowing . Mild facet arthropathy. Mild central canal stenosis. C5-C6: Postoperative ACDF. Moderate LEFT greater than RIGHT bony foraminal narrowing. Mild facet arth ropathy. Mild central canal stenosis. C6-C7: Disc osteophyte complex with endplate ridging. Moderate central canal stenosis with slight con tact of the cervical cord with slight indentation. Severe LEFT bony foraminal narrowing. Moderate RIG HT bony foraminal narrowing. C7-T1: Spinal canal and foramen are patent. Visualized brain stem structures: Normal. Prevertebral soft tissues: Normal. MR/MR cervical spin wo con* [id number] IMPRESSION: Overall no remarkable changes compared to the prior examinations. 1. Straightening of the normal cervical lordosis. Prior postoperative changes ACDF C3-C6 with corpectomy at C5. Alignment is unchanged from the prior examina tions. 2. Central disc osteophyte protrusion C6-C7 with indentation on cervical cord and moderate central canal stenosis. This appears unchanged from the prior MRI October 09, 2019. 3. Multilevel bony foraminal narrowing moderate's LEFT C4-C5, moderate LEFT C5 -C6, and severe at LEFT C6-C7. This is similar to the prior examinations.
== END 2022-02-02 14:08 | disposition home or self-care (01) ==
PROVIDERS: PCP Nurse Practitioner Family; Visit Provider Orthopaedic Surgery
DX: M50.020 Cervical disc disorder with myelopathy, mid-cervical region, unspecified level (principal); M50.121 Cervical disc disorder at C4-C5 level with radiculopathy; M48.02 Spinal stenosis, cervical region
CPT/HCPCS: 72141; 72148

== ENCOUNTER → 2022-02-03 14:28 | Outpatient (BNVA) | payer MEDICAID, SELFPAY | PROVIDERS: PCP Nurse Practitioner Family; Visit Provider Orthopaedic Surgery | DX: M47.12 Other spondylosis with myelopathy, cervical region (principal); Z98.1 Arthrodesis status | CPT/HCPCS: 99214 ==

== ENCOUNTER 2022-03-16 15:26 | Inpatient (IN) | payer MEDICAID, SELFPAY ==
--- NOTE | 2022-03-12 10:46 | ECG_ITS ---
[facility] Test Date: 2022-03-12 Pat Name: Ernestine Nunez Department: Room: Gender: Female Skill Training Program Coordinator: : 1955 Requested By: Ramiro Douglas Order Number: [id number] Monalisa MD: Osmar Murrell M.D. Measurements Intervals Almo Rate: 67 P: 71 MT: 168 QRS: 43 QRSD: 73 T: 54 QT: 396 QTc: 421 Interpretive Statements SINUS RHYTHM POSSIBLE LEFT ATRIAL ENLARGEMENT [-0.1mV P-WAVE IN V1/V2] LOW QRS VOLTAGE IN PRECORDIAL LEADS [QRS DEFLECTION < 1.0 mV IN CHEST LEADS] SEPTAL MYOCARDIAL INFARCTION , PROBABLY OLD [40+ ms Q WAVE IN V1/V2] Compared to ECG 10/14/2021 14:54:36 Low QRS voltage now present Myocardial infarct finding still present Electronically Signed On 03-12-2022 14:28:30 CDT by Osmar Murrell M.D. [email or web address]
[2022-03-12 11:08] LABS: Anion Gap 12.4 (5-19); Blood Urea Nitrogen 11 mg/dL (8-23); Calcium 9.3 mg/dL (8.5-10.5); Carbon Dioxide 30 mmol/L (22-29); Chloride 100 mmol/L (98-107); Creatinine Clr Calc Pharmacy 59.5737; Glomerular Filtration Rate 123.4 mL/min (90-130); Glucose 91 mg/dL (65-115); Osmolality Calculated 285 mOsm/kg (285-295); Potassium 4.4 mmol/L (3.5-5.1); Sodium 138 mmol/L (136-145)
--- NOTE | 2022-03-12 13:23 | ANES.PREANE2 ---
Pre-Anesthetic Assessment Height/Weight: Height 1.57 m Weight 61.235 kg Preop Diagnosis: Difficulty in swallowing Operation Date: 03/16/22 09:40 Proposed Procedures p Cervical Posterior Fusion C2-T2 W/DECOMPRESSION C5-C7 [id number](Not Applicable) - Drew Fletcher DO s Cervical Decompression C5-C7 M47.12(Not Applicable) - Drew Fletcher DO Familial anesthetic complications: none Was Beta Dorian taken within 24 hours: N/A Was Clonidine taken within 24 hours: N/A Social Tobacco and No alcohol Exam alert, oriented x 3 and regular rate & rhythm Airway Submandibular: within normal limits Cervical ROM: within normal limits (no increase in symptoms) Mallampati: Class II Dentition: false Pulmonary Chronic Obstructive Pulmonary Disease CV/HEM Hypertension GI Gastroesophageal Reflux Disease Metabolic Thyroid Disease Musc/skel Lower Back Pain and Osteoarthritis/DJD Neuropsych Anxiety and Depression Anesthetic Plan ASA status: 3 Anesthesia: General Medications/Allergies Home Medications Medication Instructions Recorded Confirmed Last Taken Type albuterol 90 mcg/actuation aerosol 90 mcg inhalation DAILY 09/27/19 03/12/22 Unknown History inhaler aspirin 81 mg tablet,delayed 81 mg PO DAILY 09/27/19 03/12/22 Unknown History release cholecalciferol (vitamin D3) 50 2,000 unit PO DAILY 09/27/19 03/12/22 Unknown History mcg (2,000 unit) capsule levothyroxine 88 mcg capsule 88 mcg PO DAILY 09/27/19 03/12/22 05/01/20 History lisinopril 10 mg tablet 10 mg PO BID 09/27/19 03/12/22 04/30/20 History loratadine 10 mg capsule 10 mg PO DAILY 09/27/19 03/12/22 Unknown History mometasone-formoterol HFA 200 2 puff inhalation BID 09/27/19 03/12/22 Unknown History mcg-5 mcg/actuation aerosol inhaler (Dulera) olopatadine 0.1 % eye drops 1 drop ophthalmic (eye) BID 09/27/19 03/12/22 Unknown History (Patanol) oxybutynin chloride 5 mg tablet 5 mg PO BID 09/27/19 03/12/22 Unknown History pantoprazole 40 mg tablet,delayed 40 mg PO DAILY 30 days #30 tabs 05/01/20 03/12/22 Unknown Rx release (Protonix) albuterol sulfate 2.5 mg/0.5 mL 2.5 mg inhalation Q20M 12/26/20 03/12/22 Unknown History solution for nebulization estradiol cypionate 5 mg/mL 5 mg IM DIRECTED 12/26/20 03/12/22 Unknown History intramuscular oil (Depo-Estradiol) gabapentin 100 mg capsule 200 mg PO TID 12/26/20 03/12/22 Unknown History cyclobenzaprine 5 mg tablet 5 mg PO TID PRN muscle spasm #10 10/04/21 03/12/22 Unknown Rx tabs lamotrigine 150 mg tablet 75 mg PO DAILY #30 tabs 01/29/22 03/12/22 Unknown Rx (Lamictal) zolpidem 5 mg tablet (Ambien) 5 mg PO .HS #30 tabs 01/29/22 03/12/22 Unknown Rx Allergies Allergy/AdvReac Type Severity Reaction Status Date / Time Sulfa (Sulfonamide Allergy Mild GI UPSET Verified 02/03/22 15:33 Antibiotics) hydromorphone [From Dilaudid] Allergy Unknown SEIZURE Verified 02/03/22 15:33 LIKE ACTIVITY ciprofloxacin [From Cipro] Allergy rash Verified 02/03/22 15:33 [facility] Anesthesia Medical History Bipolar disorder, in partial remission, most recent episode manic Bipolar II disorder Cervical disc disorder with myelopathy of mid-cervical region Chronic otitis externa of both ears COPD (chronic obstructive pulmonary disease) Dysphagia Imbalance Osteoarthritis of left AC (acromioclavicular) joint Otalgia of both ears Pseudarthrosis following spinal fusion Psychiatric care Traumatic complete tear of left rotator cuff Surgical History H/O spinal fusion H/O: hysterectomy History of ankle surgery History of mandibular surgery Hx of carpal tunnel repair left Hx of section Hx of cholecystectomy S/P left rotator cuff repair Status post cervical spinal fusion C5 corpectomy, C3-C6 anterior fusion/fixation;10/04/2013;[facility] [place]. Family History Mother Diabetes Stroke Social History (Updated 01/29/22 @ 14:58 by Melissa Dahl) Smoking and tobacco status: current every day smoker cigarettes Packs smoked per day: 2 Years cigarettes smoked: 50 Quit status (tobacco): has tried quititng Second hand smoke exposure: No Alcohol intake: never Household members: significant other Marital status: Single Current occupational status: disabled History of recent travel: No Data Anesthesia : 03/12/22 10:30 BMP 03/12/22 10:30 Sodium 138 Potassium 4.4 Chloride 100 Carbon Dioxide 30 H BUN 11 Creatinine 0.5 Glucose 91 Calcium 9.3 Cardiac Studies: No Data to Display
[2022-03-16] VITALS (24 sets, daily range): BP systolic 114–150; BP diastolic 62–90; PULSE 64–94; RESP 14–20; TEMP 36.1–36.7; O2SAT 93–100; BMI 24.7
--- NOTE | 2022-03-16 | XR_ITS ---
WS: [id number] XR cervical spine 1V [id number] REASON FOR EXAM: c2 to t2 spf with decompression FINDINGS: AP view of the cervical spine in surgery. Pre-existing plate and screw fixation C3-C6 with corpectomy device C5-C6. Addition of pedicle screws and rods extending from C2 to T2. On the single view the surgical appliances appear in proper position and alignment. XR/XR cervical spine 1V [id number] IMPRESSION: Cervical spine surgery as above.
--- NOTE | 2022-03-16 | SCC_ITS ---
Procedure done: 1. C2-T2 posterior spine fusion 2.? C2-T2 poserior spine instrumentation 3.? C5/6? laminectomy with partial facetectomies 4. C6/7 laminectomy with partial facetectomies 5. C7/T1 laminectomy with partial facetectomies 6. use of autograft from same incision 7. Use of allograft 27.9 seconds of fluoroscopic guidance, for a cumulative dose of 2.70 mGy, was provided to Dr. Fletcher by the radiology department. C-arm images of the cervical spine were saved for the patient's permanent record. [facility]ITAL[facility]
--- NOTE | 2022-03-16 08:08 | P.ANESUD_ITS ---
Pre-Anesthetic Update Pre-Anesthetic Assessment: Date of Surgery/Procedure: 03/16/22 Preop Eva gnosis: Cervical spondylosis with myelopathy Proposed Procedure: Operation Date: 03/16/22 09:20 Proposed Procedures p Cervical Posterior Fusion C2-T2 W/DECOMPRESSION C5-C7 [id number](Not Applicable) - Drew Fletcher, DO s Cervical Decompression C5-C7 M47.12(Not Applicable) - Drew Fletcher, DO Any changes to Pre-Anesthetic Assessment?: No Last Intake: Intake Last Liquid Date 03/15/22 Last Liquid Time 21:00 Last Solid Date 03/15/22 Last Solid Time 21:00 Vitals: Temperature 98.1 F 03/16/22 07:27 Temperature Source Temporal Artery S can 03/16/22 07:27 Pulse Rate 66 03/16/22 07:27 Pulse Rhythm 03/16/22 07:35 Pulse Strength 3+ Normal 03/16/22 07:35 Respiratory Rate 16 03/16/22 07:27 Blood Pressure 150/90 03/16/22 07:27 Blood Pressure Jenn n 110 03/16/22 07:27 Pulse Oximetry 97 03/16/22 07:27 Oxygen Delivery Me thod 03/16/22 07:35 Exam: Pre-Anes Outpt Exam: alert, oriented x 3, clear to auscultation bilaterally and regular rate & rhythm Cardiac Studies: No Data to Display
[2022-03-16] MEDS: sodium chloride 0.9% 1,000 ML 30 ML IV (08:24)
[2022-03-16] MEDS: ipratropium-albuterol 3 mL Neb INHALATION (08:32)
[2022-03-16 08:41] LABS: Basophils # 0.1 10^3/uL (0.0-0.1); Basophils % 0.9 %; Eosinophils # 0.3 10^3/uL (0.0-0.8); Eosinophils % 3.2 %; Hematocrit 42.5 % (37.0-47.0); Hemoglobin 13.7 g/dL (11.5-15.3); Lymphocytes % 19.4 %; Mean Corpuscular HGB Conc 32.2 g/dL (30.0-36.0); Mean Corpuscular Hemoglobin 28.7 pg (28.0-34.0); Mean Corpuscular Volume 89.1 fl (81-99); Mean Platelet Volume 11.3 fL (7.4-10.4); Monocytes # 0.7 10^3/uL (0.2-0.9); Monocytes % 6.3 %; Neutrophils # 7.18 10^3/uL (1.8-7.7); Neutrophils % 69.5 %; Nucleated Red Blood Cells % 0 %; Platelet Count 280 10^3/cmm (130-400); Red Blood Count 4.77 10^6/uL (4.1-5.3); Red Cell Distribution Width 14.2 % (12.1-15.1); White Blood Count 10.3 10^3/uL (4.0-10.0)
--- NOTE | 2022-03-16 09:39 | PM.HP ---
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 Patient had a previous corpectomy at 4-7.? Which does look fused.? There is compression of the spinal cord at C C6-C7.? Plan at this point is to do a C2-T2 posterior spine fusion with decompression from C5-C7.? I had an open and honest discussion with the patient about the risks, benefits and alternatives to both surgical and nonsurgical treatment.? The patient verbalized understanding of the inherent unpredictability associated with surgery.? Risk of surgery were discussed including, but not limited to, infection, bleeding, temporary and permanent nerve damage, continued pain, stiffness, incomplete healing, need for revision surgery, blood clot and other complications.? The patient verbalized understanding that there is spine is elective in nature and if they find any of these risks to be unacceptable then they should choose not to have the surgery.? The patient verbalized understanding of these risks and elected to proceed with the surgery. 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 Patient had a previous corpectomy at 4-7.? Which does look fused.? There is compression of the spinal cord at C C6-C7.? Plan at this point is to do a C2-T2 posterior spine fusion with decompression from C5-C7.? I had an open and honest discussion with the patient about the risks, benefits and alternatives to both surgical and nonsurgical treatment.? The patient verbalized understanding of the inherent unpredictability associated with surgery.? Risk of surgery were discussed including, but not limited to, infection, bleeding, temporary and permanent nerve damage, continued pain, stiffness, incomplete healing, need for revision surgery, blood clot and other complications.? The patient verbalized understanding that there is spine is elective in nature and if they find any of these risks to be unacceptable then they should choose not to have the surgery.? The patient verbalized understanding of these risks and elected to proceed with the surgery. Review of Systems General: Reports: 10 or more systems reviewed and unremarkable except in HPI and below Const: Denies: fever(s) or chills Eyes: Denies: change in vision ENMT: Denies: throat pain Card: Denies: chest pain or dyspnea on exertion Resp: Reports: productive cough; Denies: dyspnea GI: Denies: abdominal pain, nausea, vomiting or change in bowel habits : Reports: urinary frequency and urinary urgency; Denies: difficulty voiding Musc: Reports: neck pain, extremity pain and joint pain; Denies: joint swelling or limited range of motion Skin/Breast: Denies: changes in skin color or dry skin Neuro: Reports: numbness in extremities, weakness in extremities, sensory changes, lack of coordination, difficulty walking and frequent falls Psych: Denies: anxiety Endo: Denies: flushing Joel/Lymph: Denies: easy bruising or easy bleeding All/Imm: Denies: urticaria Medications/Allergies Home Medications Medication Instructions Recorded Confirmed Last Taken Type albuterol 90 mcg/actuation aerosol 90 mcg inhalation DAILY 09/27/19 03/16/22 03/14/22 History inhaler aspirin 81 mg tablet,delayed 81 mg PO DAILY 09/27/19 03/16/22 03/09/22 History release cholecalciferol (vitamin D3) 50 2,000 unit PO DAILY 09/27/19 03/16/22 03/12/22 History mcg (2,000 unit) capsule levothyroxine 88 mcg capsule 88 mcg PO DAILY 09/27/19 03/16/22 03/11/22 History lisinopril 10 mg tablet 10 mg PO BID 09/27/19 03/12/22 04/30/20 History loratadine 10 mg capsule 10 mg PO DAILY 09/27/19 03/12/22 Unknown History mometasone-formoterol HFA 200 2 puff inhalation BID 09/27/19 03/12/22 Unknown History mcg-5 mcg/actuation aerosol inhaler (Dulera) olopatadine 0.1 % eye drops 1 drop ophthalmic (eye) BID 09/27/19 03/12/22 Unknown History (Patanol) oxybutynin chloride 5 mg tablet 5 mg PO BID 09/27/19 03/16/22 03/12/22 History pantoprazole 40 mg tablet,delayed 40 mg PO DAILY 30 days #30 tabs 05/01/20 03/16/22 03/11/22 Rx release (Protonix) albuterol sulfate 2.5 mg/0.5 mL 2.5 mg inhalation Q20M 12/26/20 03/12/22 Unknown History solution for nebulization estradiol cypionate 5 mg/mL 5 mg IM DIRECTED 12/26/20 03/16/22 02/09/22 History intramuscular oil (Depo-Estradiol) gabapentin 100 mg capsule 200 mg PO TID 12/26/20 03/16/22 03/11/22 History cyclobenzaprine 5 mg tablet 5 mg PO TID PRN muscle spasm #10 10/04/21 03/16/22 01/21/22 Rx tabs lamotrigine 150 mg tablet 75 mg PO DAILY #30 tabs 01/29/22 03/16/22 03/11/22 Rx (Lamictal) zolpidem 5 mg tablet (Ambien) 5 mg PO .HS #30 tabs 01/29/22 03/16/22 03/15/22 20:00 Rx Allergies Allergy/AdvReac Type Severity Reaction Status Date / Time Sulfa (Sulfonamide Allergy Mild GI UPSET Verified 02/03/22 15:33 Antibiotics) hydromorphone [From Dilaudid] Allergy Unknown SEIZURE Verified 02/03/22 15:33 LIKE ACTIVITY ciprofloxacin [From Cipro] Allergy rash Verified 02/03/22 15:33 PFSH Acute PFSH: Medical History Bipolar disorder, in partial remission, most recent episode manic Bipolar II disorder Cervical disc disorder with myelopathy of mid-cervical region Chronic otitis externa of both ears COPD (chronic obstructive pulmonary disease) Dysphagia Imbalance Osteoarthritis of left AC (acromioclavicular) joint Otalgia of both ears Pseudarthrosis following spinal fusion Psychiatric care Traumatic complete tear of left rotator cuff Surgical History H/O spinal fusion H/O: hysterectomy History of ankle surgery History of mandibular surgery Hx of carpal tunnel repair left Hx of section Hx of cholecystectomy S/P left rotator cuff repair Status post cervical spinal fusion C5 corpectomy, C3-C6 anterior fusion/fixation;10/04/2013;[facility] [place]. Family History Mother Diabetes Stroke Social History (Updated 01/29/22 @ 14:58 by Melissa Dahl) Smoking and tobacco status: current every day smoker cigarettes Packs smoked per day: 2 Years cigarettes smoked: 50 Quit status (tobacco): has tried quititng Second hand smoke exposure: No Alcohol intake: never Household members: significant other Marital status: Single Current occupational status: disabled History of recent travel: No Vitals/I&O/Wt Last Vital Signs Temp 98.1 F 03/16/22 07:27 Pulse 66 03/16/22 07:27 Resp 16 03/16/22 07:27 BP 150/90 03/16/22 07:27 Pulse Ox 97 03/16/22 07:27 O2 Del Method 03/16/22 07:35 Physical Exam Narrative: CONSTITUTIONAL: The patient is a normal appearing [] in no apparent distress. GENERAL: Patient in no acute distress. CARDIAC: Regular rate and rhythm. CHEST: Normal inspiratory effort, normal respiratory rate. ABDOMEN: Soft and nontender. SKIN: Clear, warm and intact. NEURO?PSYCH: The patient is alert and oriented to person, place and time. Sensorv /SILT Motor StrengthShoulder abduction C5 5/5Wrist extension C6 5/5Elbow extension C7 5/5Hand Splitting Machine Feeder C8 5/5Finger abduction T15/5 Radial/ Ulnar/ Median n intact LowerSensory (SILT)Motor StrengthHin flexion L2/3Ant/inner thigh 5/5Hip adduction L2/3 5/5Knee extension L4 Lat thigh, 5/5Toe dorsiflexion L5 5/5Ankle dorsiflexion L5/ Q29Hhgexet flexion S1 5/5 DTRBleeps 2+Triceps 2+Brachioradialis 2+Patellar 2+Achilles 2+ MUSCULOSKELETAL: [] UPPEREXTREMITIES: The patient had full active ROM in fingers, wrist, elbow, and shoulder. The patient demonstrated ability to fully flex/extend/abduct/adduct fingers, make ok sign, cross 2nd/3rd digits, extend 1st digit fully.. Radial pulse 2+, CR<2 seconds. LOWER EXTREMITIES: Pt has full, active ROM of toes, ankle, knee, and hip. Dorsalis pedis/posterior tibialis pulses 2+, CR<2 seconds. SPINE: Skin warm, dry, intact. Data : 03/16/22 08:05 03/12/22 10:30 A&P Assessment and plan (1) Cervical spondylosis with myelopathy: C2 to T2 psf with decompression Status: Acute Attestations Medical Necessity Statement*: failed conervative therapy Coding Level of Care Code Acute Health Clinician for Chg Fwd Diagnoses Cervical spondylosis with myelopathy M47.12
--- NOTE | 2022-03-16 10:25 | SUR.PREOP ---
10:00 neb treatment finished. no further wheezing noted. pt resting comfortably.
[2022-03-16] MEDS: ceFAZolin 2,000 MG in sodium chloride 0.9% (plus) 50 ML 100 MG IV ×2 (10:50→20:17)
[2022-03-16] MEDS: vancomycin 1,000 MG SDV 1000 MG XX (11:25)
--- NOTE | 2022-03-16 13:08 | PM.OP ---
Operative Report Date of procedure: March 16, 2022 Pre-op diagnosis: Preop Diagnosis Cervical spondylosis with myelopathy Post-op diagnosis: same Procedure done: 1. C2-T2 posterior spine fusion 2.? C2-T2 poserior spine instrumentation 3.? C5/6? laminectomy with partial facetectomies 4. C6/7 laminectomy with partial facetectomies 5. C7/T1 laminectomy with partial facetectomies 6. use of autograft from same incision 7. Use of allograft Surgeon: Drew Fletcher Boring Machine Feeder: Miles Sinclair Boring Machine Feeder: The surgical assist, Miles Sinclair, PAC was needed for his expertise under the microscope. He was important and necessary throughout the procedure to complete in a safe and timely manner. He assisted with patient positioning prepping and draping tissue retraction suctioning of the operative field protection of the dural sac and tissue closure Estimated blood loss (mL): 100 Procedure: 1. C2-T2 posterior spine fusion 2.? C2-T2 poserior spine instrumentation 3.? C5/6? laminectomy with partial facetectomies 4. C6/7 laminectomy with partial facetectomies 5. C7/T1 laminectomy with partial facetectomies 6. use of autograft from same incision 7. Use of allograft Procedure after undergoing anesthesia was placed in the prone position all areas impingement well-padded.?The posterior cervical spine was prepped and draped in normal sterile fashion.? All areas impingement were well-padded.? A skin incision was made from C2 down to T2.? Subperiosteal dissection was made from the lamina out to the lateral masses of C2 down to T2.? Retractors were placed.? Next attention was brought to placing the pars screws into C2.? This was done using a high-speed bur followed by the pedicle probe followed by placing the screw.? This was done bilaterally.? Next attention was brought to the C3 level.? Screws placed at C3 bilaterally.? Using the same technique.? This was done using the high-speed bur followed by the drill followed by pedicle probe followed by placing the screw.? screws in C4 on were done bilaterally.? And I also placed bilateral screws at C5.? ? I did place lateral mass screws at C6 bilaterally using the same technique.? And then I placed pedicle screws at T1 and T2 bilaterally high-speed bur was used followed by pedicle probe followed by tap followed by the screw. Once all the screws were placed attention was then brought to doing the laminectomies. Attention was first brought to doing the laminectomy of C7.? With partial facetectomy of C7/T1.? This was done using high-speed bur curettes and Kerrison rongeurs.? The ligamentum flavum was taken down and then the lamina was lifted off.? The medial aspect of facet joints were taken down with the Kerrison rongeur.? In the C8 nerve root was palpated at the C7/T1 foramen.? This was done bilaterally.? The dura was found to be in good repair. Attention was first brought to doing the laminectomy of C6.? With partial facetectomy of C6/7.? This was done using high-speed bur curettes and Kerrison rongeurs.? The ligamentum flavum was taken down and then the lamina was lifted off.? The medial aspect of facet joints were taken down with the Kerrison rongeur.? In the C7 nerve root was palpated at the C6/7 foramen.? This was done bilaterally.? The dura was found to be in good repair. Attention was first brought to doing the laminectomy of C5.? With partial facetectomy of C5/6.? This was done using high-speed bur curettes and Kerrison rongeurs.? The ligamentum flavum was taken down and then the lamina was lifted off.? The medial aspect of facet joints were taken down with the Kerrison rongeur.? In the C6 nerve root was palpated at the C5/6 foramen.? This was done bilaterally.? The dura was found to be in good repair. Once all the laminectomies were completed attention was then brought to attaching the rods to the screws.? Rods were connected from C2 down to T2.? And caps were placed and torqued in position. Next attention was brought to decorticating the lamina from C2 and lateral masses C3-C4 C5-C6-C7 and lamina of C7 and T1 and T2 this was all bilaterally.? The bone from the laminectomies along with ostial amp allograft were packed into the gutters.? This was done bilaterally. Next vancomycin powder was placed in the wound deep drain was placed and wound was closed in a layered fashion with 0 Vicryl 2-0 Vicryl and Monocryl suture.? Sterile dressings were applied.? Patient was then flipped back over into the supine position.? She was then transferred to the PACU in stable condition.
[2022-03-16] MEDS: fentaNYL 50 mcg/mL INJ 2mL IVP ×2 (13:40→13:58)
--- NOTE | 2022-03-16 13:47 | ANE.PACU2 ---
Inpatient post-anesthesia follow up: Airway intact: Yes Vital signs: Temperature 97.0 F Pulse Rate 67 Respiratory Rate 18 Blood Pressure 140/73 Pulse Oximetry 98 Oxygen Delivery Me thod Room Air Oxygen Flow Rate 6 Fraction of Inspir ed Oxygen Hydration adequate: Yes Nausea and vomiting: No Pain level: 1 Mental status: Baseline
[2022-03-16] MEDS: morphine 4 mg/mL SDV 1 mL IVP ×2 (14:48→20:15)
--- NOTE | 2022-03-16 14:49 | SUR.EXTENDED ---
14:25 RECEIVED PT FROM PACU STAFF. A+O X 3. VENTILATING WELL. ROM AND SENSATION ALL 4 EXTREMITIES. 14:50 MEDICATED FOR NECK PAIN. SIDE RAILS UP CALL HARRIS IN REACH. TOLERATING PO FLUIDS WELL.
--- NOTE | 2022-03-16 15:37 | SUR.EXTENDED ---
15:35 MODERATED RELIEF OF NECK PAIN. REPORT CALLED TO 2ND FLOOR NURSE. 15:40 TRANSPORTED TO 2ND FLOOR ON HOSPITAL BED.
[2022-03-16] MEDS: HYDROcodone-acetaminophen 5-325 mg Tablet PO (16:11)
[2022-03-16] MEDS: gabapentin 100 mg Capsule 200 MG PO ×2 (16:13→20:15)
[2022-03-16] MEDS: lactated ringers 1,000 ML 90 ML IV (16:14)
[2022-03-16] MEDS: docusate sodium 100 mg Capsule PO (17:35)
[2022-03-16] MEDS: oxybutynin 5 mg Tablet PO (17:35)
[2022-03-16] MEDS: lisinopril 10 mg Tablet PO (17:35)
[2022-03-16] MEDS: ketorolac 30 mg/mL INJ IVP (17:39)
[2022-03-16] MEDS: olopatadine 0.1% Op Soln 5 mL Btl 1 DROP EYE-BOTH (17:39)
--- NOTE | 2022-03-16 18:11 | PHA.FALL ---
A Pharmacy Consult Was Conducted For Ernestine Nunez Due To: Cornelius Fall Scale Risk Level: High Fall Risk On 03/16/22 16:15 And A Medication Fall Risk Score Greater Than 10. The Recommendations Are As Follows: the medications listed below have sedation/somnolence/dizziness adverse reactions. Concomitant administration of these medications may lead to an increased/compounded risk of falls and it is recommended to avoid administration together if possible. Many of the offending medications are listed as PRN therefore extra caution must be taken when the need arises for a particular agent. - Cyclobenzaprine: sedation - Gabapentin: sedation - Hydrocodone-APAP: sedation - Lamotrigine: coordination problems, dizziness, somnolence - Meperidine: sedation - Morphine: sedation - Oxybutynin: sedation -Zolpidem: sedation
[2022-03-16] MEDS: zolpidem 5 mg Tablet PO (20:15)
[2022-03-16] MEDS: budesonide 0.5 mg/2 mL Neb INHALATION (21:15)
[2022-03-16] MEDS: levalbuterol 0.63 mg/3 mL Neb INHALATION (21:15)
[2022-03-17] VITALS (10 sets, daily range): BP systolic 94–143; BP diastolic 57–78; PULSE 59–106; RESP 16–18; TEMP 36.5–36.8; O2SAT 92–98
[2022-03-17] MEDS: ketorolac 30 mg/mL INJ IVP (00:34)
[2022-03-17] MEDS: cyclobenzaprine 10 mg Tablet 5 MG PO (00:34)
[2022-03-17] MEDS: lactated ringers 1,000 ML 90 ML IV ×2 (04:37→17:57)
[2022-03-17] MEDS: ceFAZolin 2,000 MG in sodium chloride 0.9% (plus) 50 ML 100 MG IV (06:23)
[2022-03-17] MEDS: morphine 4 mg/mL SDV 1 mL IVP (06:24)
--- NOTE | 2022-03-17 07:46 | P.PN_ITS ---
Subjective Subjective: POD 1 Patient resting comfortably. Patient reports improvement of sensation in her hands. Moving both upper extremities. Mild swallowing discomfort. Denies any chest pain, shortness of breath or headaches. Vitals/I&O/Wt Last Vital Signs Temp 98.0 F 03/17/22 00:00 Pulse 69 03/17/22 06:00 Resp 18 03/17/22 06:24 BP 94/57 03/17/22 00:00 Pulse Ox 92 03/17/22 00:00 O2 Del Method 03/16/22 21:16 O2 Flow Rate 6 03/16/22 20:00 03/16/22 03/17/22 03/17/22 22:59 06:59 14:59 Intake Total 290 / 1240 1720 / 2960 Output Total 140 / 890 1200 / 2090 Balance 150 / 350 520 / 870 Weight last 48 hrs Weight 135 lb Physical Exam Narrative: Patient is alert and oriented x3 with a good general appearance normal mood and affect. Nontender with palpation about the incisional site. Incision appears to be clean and dry without signs of erythema or drainage. Hemovac drain intact. No signs of infection. Good motor strength throughout both upper extremities. Appears to fire in all motor groups with 5/5 strength. Hands are warm good cap refill in all digits. Normal sensation to light touch in all dermatomal areas. Urinary Catheter Management: Callahan: Cath Placed During This Visit: yes Reason for Continuing Indwelling Catheter: Other Urinary Catheter Date of Insertion: 03/16/22 Urinary Catheter Time of Insertion: 11:00 Data : 03/16/22 08:05 03/12/22 10:30 A&P Assessment and plan (1) Cervical spondylosis with myelopathy: We will discontinue Callahan catheter. We will continue the Hemovac drain until tomorrow. Physical therapy to mobilize. Encourage incentive spirometry for pulmonary toilet. We will work for discharge home tomorrow. Status: Acute (2) Status post cervical spinal fusion: Status: Chronic Attestations Medical Necessity Statement*: DC home tomorrow Coding Level of Care Code Acute Learning Disabilities Teacher for Yamileth Oliveira Diagnoses Cervical spondylosis with myelopathy M47.12 Status post cervical spinal fusion Z98.1
[2022-03-17] MEDS: levalbuterol 0.63 mg/3 mL Neb INHALATION ×2 (08:28→14:16)
[2022-03-17] MEDS: budesonide 0.5 mg/2 mL Neb INHALATION (08:28)
[2022-03-17] MEDS: lamoTRIgine 25 mg Tablet 75 MG PO (10:21)
[2022-03-17] MEDS: oxybutynin 5 mg Tablet PO ×2 (10:21→17:57)
[2022-03-17] MEDS: aspirin 81 mg EC Tablet PO (10:22)
[2022-03-17] MEDS: levothyroxine 88 mcg Tablet PO (10:22)
[2022-03-17] MEDS: cholecalciferol (vitamin D3) 1,000 unit Tablet 2000 UNIT PO (10:22)
[2022-03-17] MEDS: gabapentin 100 mg Capsule 200 MG PO ×3 (10:22→20:29)
[2022-03-17] MEDS: nicotine 21 mg Patch 1 PATCH TRANSDERMA (10:22)
[2022-03-17] MEDS: loratadine 10 mg Tablet PO (10:23)
[2022-03-17] MEDS: docusate sodium 100 mg Capsule PO ×2 (10:23→17:57)
[2022-03-17] MEDS: HYDROcodone-acetaminophen 5-325 mg Tablet PO ×3 (10:23→22:54)
[2022-03-17] MEDS: pantoprazole DR 40 mg Tablet PO (10:23)
[2022-03-17] MEDS: olopatadine 0.1% Op Soln 5 mL Btl 1 DROP EYE-BOTH ×2 (10:24→17:57)
[2022-03-17] MEDS: lisinopril 10 mg Tablet PO (17:57)
[2022-03-17] MEDS: zolpidem 5 mg Tablet PO (20:29)
[2022-03-18] VITALS: BP 97/63; PULSE 98; RESP 18; TEMP 36.5; O2SAT 96
[2022-03-18 04:00] VITALS: BP 101/63; PULSE 77; RESP 22; TEMP 36.4; O2SAT 94
[2022-03-18] MEDS: lactated ringers 1,000 ML 90 ML IV (05:35)
[2022-03-18] MEDS: HYDROcodone-acetaminophen 5-325 mg Tablet PO ×2 (05:36→09:07)
--- NOTE | 2022-03-18 06:54 | PM.PN ---
Subjective Subjective: POD 2 Patient resting comfortably. She is wanting to be discharged home although she states that she has to travel to [place] as she does not reside locally any longer. She states her arms have increased with sensitivity she feels like she is moving her fingers better. She has better feeling in her fingertips. Denies any swallowing difficulties. Denies any chest pain or headaches. Vitals/I&O/Wt Last Vital Signs Temp 97.6 F 03/18/22 04:00 Pulse 77 03/18/22 04:00 Resp 22 H 03/18/22 04:00 BP 101/63 03/18/22 04:00 Pulse Ox 94 03/18/22 04:00 O2 Del Method 03/17/22 20:00 O2 Flow Rate 6 03/16/22 20:00 03/17/22 03/17/22 03/18/22 14:59 22:59 06:59 Intake Total 530 / 530 1974 / 2505 1360 / 3865 Output Total 335 / 335 Balance 195 / 195 1974 / 2170 1360 / 3530 Weight last 48 hrs Weight 135 lb Physical Exam Narrative: Patient is alert and oriented x3 with a good general appearance normal mood and affect. Nontender with palpation about the incisional site. Incision appears to be clean and dry without signs of erythema or drainage. No signs of infection. Good motor strength throughout both upper extremities. Appears to fire in all motor groups with 4/5 strength. Hands are warm good cap refill in all digits. Normal sensation to light touch in all dermatomal areas. Urinary Catheter Management: Callahan: Cath Placed During This Visit: yes, but has since been removed by the nurse Reason for Continuing Indwelling Catheter: Other Urinary Catheter Date of Insertion: 03/16/22 Urinary Catheter Time of Insertion: 11:00 Date Urinary Catheter Removed: 03/17/22 Time Urinary Catheter Discontinued: 10:00 Data : 03/16/22 08:05 03/12/22 10:30 A&P Assessment and plan (1) Cervical spondylosis with myelopathy: Have physical therapy evaluate prior to discharge. We will discontinue Hemovac drain change the posterior dressing with Silverlon dressing. We will see her back in the office in 1 week's time for a wound check. She will call if she is having problems. Prescription for the pain medication was sent to [facility] pharmacy for hydrocodone. Status: Acute (2) Status post cervical spinal fusion: Status: Acute Attestations Medical Necessity Statement*: Home today Coding Level of Care Code Acute Returned Goods Repairer for Chg Fwd Diagnoses Cervical spondylosis with myelopathy M47.12 Status post cervical spinal fusion Z98.1
[2022-03-18 08:00] VITALS: BP 122/79; PULSE 78; RESP 18; TEMP 36.7; O2SAT 97
[2022-03-18 08:52] VITALS: PULSE 89; RESP 16; O2SAT 95
[2022-03-18] MEDS: aspirin 81 mg EC Tablet PO (09:03)
[2022-03-18] MEDS: levothyroxine 88 mcg Tablet PO (09:03)
[2022-03-18] MEDS: lamoTRIgine 25 mg Tablet 75 MG PO (09:04)
[2022-03-18] MEDS: cholecalciferol (vitamin D3) 1,000 unit Tablet 2000 UNIT PO (09:04)
[2022-03-18] MEDS: gabapentin 100 mg Capsule 200 MG PO (09:04)
[2022-03-18] MEDS: loratadine 10 mg Tablet PO (09:07)
[2022-03-18] MEDS: oxybutynin 5 mg Tablet PO (09:07)
[2022-03-18] MEDS: docusate sodium 100 mg Capsule PO (09:07)
[2022-03-18] MEDS: pantoprazole DR 40 mg Tablet PO (09:07)
[2022-03-18] MEDS: lisinopril 10 mg Tablet PO (09:07)
[2022-03-18] MEDS: nicotine 21 mg Patch 1 PATCH TRANSDERMA (09:08)
[2022-03-18] MEDS: olopatadine 0.1% Op Soln 5 mL Btl 1 DROP EYE-BOTH (09:10)
--- NOTE | 2022-03-18 12:33 | PM.DCS ---
Discharge Providers Date of Admission: 03/16/22 15:26 Date of Discharge: March 18, 2022 Attending Provider at Admission: Drew Fletcher DO Attending Provider at Discharge: Drew Fletcher DO Primary Care Provider: Char Del Cid Diagnoses at Discharge Discharge Diagnosis (1) Cervical spondylosis with myelopathy: Status: Acute (2) Status post cervical spinal fusion: Status: Acute Reason for Visit Reason for Visit: C2 T2 SPF W DECOMPRESSION Hospital Course Hospital Course uneventful Physical Exam Urinary Catheter Management: Callahan: Cath Placed During This Visit: yes, but has since been removed by the nurse Reason for Continuing Indwelling Catheter: Other Urinary Catheter Date of Insertion: 03/16/22 Urinary Catheter Time of Insertion: 11:00 Date Urinary Catheter Removed: 03/17/22 Time Urinary Catheter Discontinued: 10:00 Discharge Data Studies Completed and Pending Completed Studies During Hospitalization Category Date Time Status XR cervical spine 1V [id number] Routine Exams 03/16/22 Completed Pending at discharge Category Date Time Status Leukocyte Reduced RBC Stat Lab 03/16/22 08:05 Results Type and Screen Stat Lab 03/16/22 08:05 Results Radiology Impressions Cervical Spine X-Ray 03/16/22 00:00 IMPRESSION: Cervical spine surgery as above. Laboratory Results WBC 10.3 10^3/uL (4.0-10.0) H 03/16/22 08:05 RBC 4.77 10^6/uL (4.1-5.3) 03/16/22 08:05 Hgb 13.7 g/dL (11.5-15.3) 03/16/22 08:05 Hct 42.5 % (37.0-47.0) 03/16/22 08:05 MCV 89.1 fl (81-99) 03/16/22 08:05 MCH 28.7 pg (28.0-34.0) 03/16/22 08:05 MCHC 32.2 g/dL (30.0-36.0) 03/16/22 08:05 RDW 14.2 % (12.1-15.1) 03/16/22 08:05 Plt Count 280 10^3/cmm (130-400) 03/16/22 08:05 MPV 11.3 fL (7.4-10.4) H 03/16/22 08:05 Neut % (Auto) 69.5 % 03/16/22 08:05 Lymph % (Auto) 19.4 % 03/16/22 08:05 Hopkins % (Auto) 6.3 % 03/16/22 08:05 Eos % (Auto) 3.2 % 03/16/22 08:05 Baso % (Auto) 0.9 % 03/16/22 08:05 Neut # (Auto) 7.18 10^3/uL (1.8-7.7) 03/16/22 08:05 Lymph # (Auto) 2.0 10^3/uL (0.8-4.8) 03/16/22 08:05 Hopkins # (Auto) 0.7 10^3/uL (0.2-0.9) 03/16/22 08:05 Eos # (Auto) 0.3 10^3/uL (0.0-0.8) 03/16/22 08:05 Baso # (Auto) 0.1 10^3/uL (0.0-0.1) 03/16/22 08:05 Nucleated RBC % (auto) 0 % 03/16/22 08:05 Nucleated RBCs # 0.0 /100WBC 03/16/22 08:05 Sodium 138 mmol/L (136-145) 03/12/22 10:30 Potassium 4.4 mmol/L (3.5-5.1) 03/12/22 10:30 Chloride 100 mmol/L (98-107) 03/12/22 10:30 Carbon Dioxide 30 mmol/L (22-29) H 03/12/22 10:30 Anion Gap 12.4 (5-19) 03/12/22 10:30 BUN 11 mg/dL (8-23) 03/12/22 10:30 Creatinine 0.5 mg/dL (0.5-0.9) 03/12/22 10:30 GFR Calculation 123.4 mL/min (90-130) 03/12/22 10:30 Glucose 91 mg/dL (65-115) 03/12/22 10:30 Calculated Osmolality 285 mOsm/kg (285-295) 03/12/22 10:30 Calcium 9.3 mg/dL (8.5-10.5) 03/12/22 10:30 Blood Type B Positive 03/16/22 08:05 Rho(D) Type Positive 03/16/22 08:05 Antibody Screen Negative 03/16/22 08:05 Crossmatch See Detail 03/16/22 08:05 Vitals Last Vital Signs Temp 98.0 F 03/18/22 08:00 Pulse 89 03/18/22 08:52 Resp 16 03/18/22 08:52 BP 122/79 03/18/22 08:00 Pulse Ox 95 03/18/22 08:52 O2 Del Method 03/18/22 08:52 O2 Flow Rate 6 03/16/22 20:00 Discharge Plan Discharge Patient Disposition: Home Condition: Stable Prescriptions: New hydrocodone-acetaminophen 5-325 mg Tablet 1 - 2 tab PO Q4H PRN (Reason: Moderate To Severe Pain) Qty: 40 0RF Continued loratadine 10 mg capsule 10 mg PO DAILY levothyroxine 88 mcg capsule 88 mcg PO DAILY Dulera 200-5 mcg/actuation HFA aerosol inhaler 2 puff INHALATION BID olopatadine [Patanol] 0.1 % drops 1 drop ophthalmic (eye) BID albuterol 90 mcg/actuation aerosol 90 mcg INHALATION DAILY oxybutynin chloride 5 mg tablet 5 mg PO BID lisinopril 10 mg tablet 10 mg PO BID cholecalciferol (vitamin D3) 50 mcg (2,000 unit) capsule 2,000 unit PO DAILY gabapentin 100 mg capsule 200 mg PO TID albuterol sulfate 2.5 mg/0.5 mL solution for nebulization 2.5 mg inhalation Q20M Rx Instructions: for up to 3 doses Depo-Estradiol 5 mg/mL oil 5 mg IM DIRECTED Rx Instructions: Once month zolpidem [Ambien] 5 mg tablet 5 mg PO .HS Qty: 30 1RF lamotrigine [Lamictal] 150 mg tablet 75 mg PO DAILY Qty: 30 2RF pantoprazole [Protonix] 40 mg tablet,delayed release (DR/EC) 40 mg PO DAILY 30 Days Qty: 30 2RF cyclobenzaprine 5 mg tablet 5 mg PO TID PRN (Reason: muscle spasm) Qty: 10 0RF Held aspirin 81 mg tablet,delayed release (DR/EC) 81 mg PO DAILY Hold Instructions: Resume on 04/15/22. Discharge Orders: Discharge Order (Routine); Ordered 08/10/22 Ordered By: Miles Sinclair Referrals: Drew Fletcher DO [Physician] - 03/24/22 10:45 am () Discharge Diet: Advance as tolerated Discharge Activity: Limit activity as instructed Patient Instructions: Opioid Safety, Post Anesthesia Care Activity Restrictions/Additional Instructions: Thank you for choosing [facility] for your care! The following is a list of instructions, from your provider, to follow upon your discharge to ensure you have the optimal recovery from your recent injury or surgery. Posterior cervical fusion: What to Expect at Home Your Recovery Follow-up care is a heredia part of your treatment and safety. Be sure to make and go to all appointments, and call your doctor if you are having problems. If you do not already have a follow-up appointment made, call office in the next 1-3 days to make follow up appointment for 1 weeks at [phone]. It is also a good idea to know your test results and keep a list of the medicines you take. You can expect your neck to feel stiff or sore after surgery. This should improve in the weeks after surgery. But it may take 4 to 6 months for you to get better completely. You may have trouble sitting or standing in one position for very long and may need pain medicine in the weeks after your surgery. It may take 4 to 6 weeks to get back to your usual activities, but it may depend on what kind of surgery you had. Your throat will feel sore and it may be difficult to swallow for the first 3 days after your surgery. As long as you can get liquids down without difficulty, this should slowly improve, otherwise call our office or seek medical attention if it becomes increasingly difficult to get anything down including liquids. Avoid hot liquids for first 3-5 days. Soothing foods/liquids such as jello, pudding, and luke warm soups are recommended until swallowing improves. Staying elevated will also help, it's advised you keep propped up at while sleeping to help reduce the swelling. You may use an ice pack directly on your incision or around it on the front of your neck, using a cloth to protect your skin; and a heating pad to the back of your neck as needed. Do not use over the counter anti-inflammatory medications (Ibuprofen, Motrin, Aleve, Advil, etc) Taking these meds after having a fusion can delay fusion rates, we recommend you avoid them for the first 3 [address] your surgery[address] Dr. Fletcher may advise you to work with a physical therapist to strengthen the muscles around your neck and back - this will be discussed at your follow - up appointments. The pain or numbness you were having in your arms before surgery should get better or go away completely. This care sheet gives you a general idea about how long it will take for you to recover. But each person recovers at a different pace. Follow the steps below to get better as quickly as possible. How can you care for yourself at home? Activity ? Rest when you feel tired. Getting enough sleep will help you recover. ? Try to walk each day. Start by walking a little more than you did the day before. Bit by bit, increase the amount you walk. Walking boosts blood flow and helps prevent pneumonia and constipation. Walking may also decrease your muscle soreness after surgery. ? No lifting anything that is more that 5 pounds. This may include heavy grocery bags and milk containers, a heavy briefcase or backpack, cat litter or dog food bags, a child, or a vacuum janitor cleaner. ? Avoid strenuous activities, such as bicycle riding, jogging, weightlifting, or aerobic exercise, until your doctor says it is okay. ? Do not drive until your follow-up visit after your surgery, or until your doctor says it isokay. ? Avoid taking long car trips for 2 to 4 weeks after surgery. Your neck may become tired and painful from sitting too long in one position. ? You will probably need to take 4 to 6 weeks off from work. It depends on the type of work you do and how you feel. ? You may have sex as soon as you feel able, but avoid positions that put stress on your neck or cause pain. Diet ? You can eat your normal diet. If your stomach is upset, try bland, low-fat foods like plain rice, broiled chicken, toast, and yogurt ? Drink plenty of fluids. If you have kidney, heart, or liver disease and have to limit fluids, talk with your doctor before you increase the amount of fluids you drink. ? You may notice that your bowel movements are not regular right after your surgery. This is common. Try to avoid constipation and straining with bowel movements. You may want to take a fiber supplement every day. If you have not had a bowel movement after a couple of days, ask your doctor about taking a mild laxative. Medicines ? Take pain medicines exactly as directed. 1. If Dr. Fletcher gave you a prescription medicine for pain, take lt as prescribed. 2. Do not take two or more pain medicines at the same time unless the doctor told you to. Many pain medicines have acetaminophen, which is Tylenol. Too much acetaminophen {Tylenol) can be harmful. 3. If you think your pain pill is making you sick to your stomach: 4. Take your pills after meals (unless your doctor has told you not to). 5. Ask your Dr. for a different pain pill. Incisioncare ? Remove your dressing 48 hours after your surgery. Ok to shower and get the incision wet. Do not overtly wash your incision. When done, pad dry, leave open to air thereafter. Avoid creams and ointments directly on your incision. ? Your sutures in the incision will dissolve and fall out on their own. ? Keep the area clean and dry. You may cover it with a gauze bandage if it weeps or rubs against clothing; if you choose to do this, change the dressing everyday. Other instructions ? Use a heating pad, hot water bottle, or gentle massage on your back to reduce stiffness. Avoid putting heat on your incision When should you call for help? ? Call 911 anytime you think you may need emergency care. For example, call if: ? You pass out (lose consciousness). ? You have sudden chest pain and shortness of breath, or you cough upblood. ? You cannot swallow. ? You have severe pain in your neck or back. ? Call your Dr. or seek immediate medical care if: ? You have pain that does not get better after you take pain pills. ? You have loose stitches, or your incision comes open. ? You have blood or fluid draining from the incision. ? You have signs of infection, such as: 1. Increased pain, swelling, warmth, or redness. 2. Red streaks leading from the site. 3. Pus draining from the site. 4. Swollen lymph nodes in your neck or armpits. 5. A fever. ? You have severe pain in your arms. ? You have new or increased weakness or numbness in your arms. ? Watch closely for any changes in your health, and be sure to contact your doctor if: ? You do not have a bowel movement after taking a laxative. Discharge Attestations Time Spent in Discharge Care*: less than 30 min Quality Metrics Clinical Quality Measures [ No reported AMI, CVA or VTE this stay] Coding Level of Care Code Acute g FW DC note Diagnoses Cervical spondylosis with myelopathy M47.12 Status post cervical spinal fusion Z98.1
== END 2022-03-18 12:53 | disposition home or self-care (01) | DRG 472 ==
LOC: MEDSURG 15:26
PROVIDERS: Anesthesiology; Admitting Provider Orthopaedic Surgery; PCP Nurse Practitioner Family; Visit Provider Orthopaedic Surgery
PROC: 0RG2071 Fusion of 2 or more Cervical Vertebral Joints with Autologous Tissue Substitute, Posterior Approach, Posterior Column, Open Approach (ICD-10-PCS; CPT 22600; principal; 2022-03-16 09:10)
PROC: 0RG2071 Fusion of 2 or more Cervical Vertebral Joints with Autologous Tissue Substitute, Posterior Approach, Posterior Column, Open Approach (ICD-10-PCS; CPT 63001; 2022-03-16 09:10)
DX: M47.12 Other spondylosis with myelopathy, cervical region (principal); F31.81 Bipolar II disorder; M96.0 Pseudarthrosis after fusion or arthrodesis; J44.9 Chronic obstructive pulmonary disease, unspecified; Z98.1 Arthrodesis status; F17.210 Nicotine dependence, cigarettes, uncomplicated; Z79.51 Long term (current) use of inhaled steroids
CPT/HCPCS: 36415; 51702; 72020; 76000; 80048; 85025; 86850; 86900; 86920; 93005; 94640; 97116; 97161; C1713; J0330; J1100; J1885; J2270; J2405; J2704; J2710; J3010; J3370; J3490; J7030; J7614; J7626; P9041

== ENCOUNTER → 2022-03-24 11:30 | Outpatient (BNVA) | payer MEDICAID, SELFPAY | PROVIDERS: PCP Nurse Practitioner Family; Visit Provider Orthopaedic Surgery | DX: Z47.89 Encounter for other orthopedic aftercare (principal); Z98.1 Arthrodesis status | CPT/HCPCS: 99024 ==

== ENCOUNTER → 2022-04-21 10:19 | Outpatient (BNVA) | payer MEDICAID, SELFPAY | PROVIDERS: PCP Nurse Practitioner Family; Visit Provider Orthopaedic Surgery | DX: Z47.89 Encounter for other orthopedic aftercare (principal); Z98.1 Arthrodesis status | CPT/HCPCS: 72040; 99024; 99213 ==

== ENCOUNTER → 2022-05-26 13:56 | Outpatient (BNVA) | payer MEDICAID, SELFPAY | PROVIDERS: PCP Nurse Practitioner Family; Visit Provider Physician Assistant | DX: M75.111 Incomplete rotator cuff tear or rupture of right shoulder, not specified as traumatic (principal); Z47.89 Encounter for other orthopedic aftercare; Z98.1 Arthrodesis status | CPT/HCPCS: 72040; 99213 ==

== ENCOUNTER → 2022-08-25 13:40 | Outpatient (BNVA) | payer MEDICAID, SELFPAY | PROVIDERS: PCP Nurse Practitioner Family; Visit Provider Physician Assistant | DX: Z98.1 Arthrodesis status (principal); M51.36 Other intervertebral disc degeneration, lumbar region | CPT/HCPCS: 72040; 72110; 99213 ==

== ENCOUNTER 2023-10-26 19:24 | Outpatient (CLI) | payer MEDICAID, SELFPAY ==
--- NOTE | 2023-10-26 19:37 | XRR_ITS ---
PROCEDURE INFORMATION: Exam: XR Right Foot Exam date and time: 10/26/2023 7:44 PM Age: 68 years old Clinical indication: Injury or trauma; Other: Bumped RT heel on a bed; Blunt trauma; Left; Additional info: Right foot injury TECHNIQUE: Imaging protocol: Radiologic exam of the right foot. Views: 3 or more views. COMPARISON: CR XR foot RT 2V [id number] 10/14/2021 2:27 PM FINDINGS: Bones/joints: Metal plate and screws in the distal fibula. Old healed fractures in the distal fibula and medial malleolus. No acute fracture. Soft tissues: Normal. XR/XR foot RT min 3V* [id number] IMPRESSION: No acute findings.
== END 2023-10-26 19:25 | disposition home or self-care (01) ==
PROVIDERS: PCP Physician Assistant Medical; Visit Provider Emergency Medicine
DX: S99.921A Unspecified injury of right foot, initial encounter (principal); X58.XXXA Exposure to other specified factors, initial encounter
CPT/HCPCS: 73630

== ENCOUNTER → 2024-04-06 14:42 | Outpatient (BNVA) | payer MEDICAID, SELFPAY | PROVIDERS: PCP Physician Assistant Medical; Visit Provider Orthopaedic Surgery | DX: M51.36 Other intervertebral disc degeneration, lumbar region (principal); M47.12 Other spondylosis with myelopathy, cervical region; M54.9 Dorsalgia, unspecified | CPT/HCPCS: 72110; 99213 ==

== ENCOUNTER → 2025-03-22 15:01 | Outpatient (BNVA) | payer MEDICAID, SELFPAY | PROVIDERS: PCP Physician Assistant Medical; Visit Provider Orthopaedic Surgery | DX: M75.111 Incomplete rotator cuff tear or rupture of right shoulder, not specified as traumatic (principal); M19.011 Primary osteoarthritis, right shoulder; Z98.890 Other specified postprocedural states | CPT/HCPCS: 73030; 99213 ==